=== PATIENT | female | born 1985 | race Caucasian/White ===

== ENCOUNTER 2023-09-19 13:04 | Outpatient (CLI) | payer OTHER, SELFPAY ==
--- NOTE | ~2023-09-19 | XR_ITS ---
Left wrist Technique: PA, oblique, lateral, and ulnar deviation views were obtained. Clinical History: Pain Findings: No acute fracture or dislocation is seen. Osseous alignment is anatomic. Joint spaces are p reserved. Soft tissues are unremarkable. Impression: Unremarkable left wrist radiographs. Reviewed, dictated and finalized at location . Impression: Unremarkable left wrist radiographs.
== END 2023-09-19 13:05 | disposition home or self-care (01) ==
LOC: ANHIMG 13:09
PROVIDERS: PCP Nurse Practitioner Family; Visit Provider Nurse Practitioner Family
DX: M25.532 Pain in left wrist (principal)
CPT/HCPCS: 73110

== ENCOUNTER 2023-09-25 08:51 | Outpatient (CLI) | payer OTHER, SELFPAY ==
[2023-09-25 09:08] LABS: Basophils Percent Auto 0.9 % (0.2-1.2); Eosinophils Absolute Auto 0.1 K/mm3 (0-0.3); Eosinophils Percent Auto 2.3 % (0-4.4); Hematocrit 41.9 % (37.0-47.0); Hemoglobin 14.4 g/dL (12.0-15.0); Immature Granulocyte Absolute 0.01 K/mm3 (0.00-0.031); Immature Granulocyte Percent A 0.2 % (0-0.5); Lymphocytes Absolute Auto 1.82 K/mm3 (0.9-3.2); Lymphocytes Percent Auto 42.4 % (18.3-44.2); Mean Corpuscular HGB Conc 34.4 g/dl (32-36); Mean Corpuscular Hemoglobin 31.8 pg (26-34); Mean Corpuscular Volume 92.5 fl (80-100); Monocytes Absolute Auto 0.3 K/mm3 (0.1-0.6); Monocytes Percent Auto 5.8 % (2.6-8.5); Neutrophils Absolute Auto 2.1 K/mm3 (1.3-6.7); Neutrophils Percent Auto 48.4 % (45.5-73.1); Platelet Count Result 300 k/mm3 (150-375); Red Blood Count 4.53 M/mm3 (4.2-5.4); Red Cell Distribution Width 12.2 % (11.5-14.5); White Blood Count 4.3 K/mm3 (4.5-10.0)
[2023-09-25 09:21] LABS: Alanine Aminotransferase 18 U/L (6-35); Albumin Level 4.6 g/dL (3.5-5.1); Alkaline Phosphatase 54 U/L (38-126); Anion Gap 9 mmol/L (4-12); Aspartate Amino Transferase 21 U/L (14-36); Bilirubin,Total 0.9 mg/dL (0.2-1.3); Blood Urea Nitrogen 15 mg/dL (7-17); Calcium 9.7 mg/dL (8.4-10.2); Carbon Dioxide 23 mmol/L (22-30); Chloride 107 mmol/L (98-107); Cholesterol 159 mg/dL (0-200); Estimated Glomerular Filt Rate > 60; Glucose 95 mg/dL (65-110); HDL Direct 58 mg/dL; Potassium 4.3 mmol/L (3.4-5.0); Sodium 139 mmol/L (137-145); Triglycerides 112 mg/dL (<150)
[2023-09-25 09:24] LABS: Hemoglobin A1C 4.5 % (<5.7)
[2023-09-25 09:34] LABS: LDL Cholesterol Direct 89 mg/dL
[2023-09-25 09:42] LABS: Iron 232 ug/dL (37-170)
[2023-09-25 09:51] LABS: Percent Iron Saturation 56 % (20-50)
[2023-09-25 10:53] LABS: Appearance Urine Clear (Clear); Bilirubin Urine Negative (Negative); Blood Urine Negative (Negative); Color Urine Yellow (Yellow); Glucose Urine UA Negative (Negative); Ketones Urine Negative (Negative); Leukocyte Esterase Ur Negative LEU/UL (Negative); Nitrate Urine Negative (Negative); Protein Urine Negative (Negative); Specific Grav Ur 1.012 (1.001-1.035); Urobilinogen Urine 0.2 mg/dL (<2.0)
[2023-09-25 11:04] LABS: Add Urine Microscopic? NO
== END 2023-09-25 08:52 | disposition home or self-care (01) ==
LOC: ANHLAB 08:52
PROVIDERS: PCP Nurse Practitioner Family; Visit Provider Nurse Practitioner Family
DX: Z00.00 Encounter for general adult medical examination without abnormal findings (principal); D64.9 Anemia, unspecified; Z68.30 Body mass index [BMI] 30.0-30.9, adult; Z13.1 Encounter for screening for diabetes mellitus; Z13.6 Encounter for screening for cardiovascular disorders; Z13.29 Encounter for screening for other suspected endocrine disorder
CPT/HCPCS: 36415; 80053; 80061; 81003; 82607; 82728; 83036; 83540; 83550; 84443; 85025

== ENCOUNTER 2023-10-02 15:36 | Outpatient (CLI) | payer OTHER, SELFPAY ==
--- NOTE | ~2023-10-02 | US_ITS ---
EXAMINATION: US soft tissue LE RT DATE: 10/02/2023 16:07 INDICATION: /Swelling, mass or lump at the medial right lower leg TECHNIQUE: Multiple grayscale and Doppler ultrasound images of the region of concern at the medial ri ght lower leg were obtained. COMPARISON: None FINDINGS: Indeterminate 5 x 4 x 2 mm hypoechoic nodule in the subcutaneous tissues at the region of concern. Th e nodule is positioned 3 mm deep to the skin surface and 2 mm superficial to the tibial cortex. IMPRESSION: 1. Nonspecific 5 x 4 x 2 mm hypoechoic subcutaneous nodule at the region of concern which is of indet erminate etiology or significance with differential including neoplasm either benign or statistically less likely malignant. Reviewed, dictated and finalized at location B. IMPRESSION: 1. Nonspecific 5 x 4 x 2 mm hypoechoic subcutaneous nodule at the region of con cern which is of indeterminate etiology or significance with differential inclu ding neoplasm either benign or statistically less likely malignant.
== END 2023-10-02 15:37 | disposition home or self-care (01) ==
LOC: ANHIMG 15:36
PROVIDERS: PCP Nurse Practitioner Family; Visit Provider Nurse Practitioner Family
DX: R22.41 Localized swelling, mass and lump, right lower limb (principal)
CPT/HCPCS: 76882

== ENCOUNTER 2023-10-11 13:36 | Outpatient (CLI) | payer OTHER, SELFPAY ==
--- NOTE | 2023-10-11 14:20 | NEURO_ITS ---
Impression: # Complains of numbness of left 4th and 5th fingers. Non-diabetic. # Left ulnar neuropathy across the elbow. # Normal needle/EMG without neurogenic changes or myotonia. # Clinical correlation recommended. Nerve Conduction Studies Anti Sensory Summary Table Stim Site NR Peak (ms) P-T Amp (?V) Site1 Site2 Delta-P (ms) Dist (cm) Grady (m/s) Left Median Anti Sensory (2-3nd Digit) Wrist 2.7 69.9 Wrist 2-3nd Digit 2.7 14.0 52 Wrist 2.6 62.3 Wrist 2-3nd Digit 2.7 14.0 52 Left Radial Anti Sensory (Base 1st Digit) Wrist 2.0 31.0 Wrist Base 1st Digit 2.0 0.0 Left Ulnar Anti Sensory (5th Digit) Wrist 2.2 58.1 Wrist 5th Digit 2.2 14.0 64 Motor Summary Table Stim Site NR Onset (ms) O-P Amp (mV) Site1 Site2 Delta-0 (ms) Dist (cm) Grady (m/s) Left Median Motor (Abd Poll Brev) Wrist 2.6 9.3 Elbow Wrist 4.7 30.0 64 Elbow 7.3 7.8 Left Ulnar Motor (Abd Dig Minimi) Wrist 2.1 7.7 A Elbow Wrist 5.5 28.0 51 A Elbow 7.6 4.5 B Elbow Wrist 3.5 20.0 57 B Elbow 5.6 6.6 F Wave Studies NR F-Lat (ms) L-R F-Lat (ms) Left Median (Mrkrs) (Abd Poll Brev) 25.31 Left Ulnar (Mrkrs) (Abd Dig Min) 25.94 EMG Side Muscle Nerve Root Ins Act Fibs Amp Dur Recrt Comment Left 1stDorInt Ulnar C8-T1 Nml Nml Nml Nml Nml Left Ext Indicis Radial (Post Int) C7-8 Nml Nml Nml Nml Nml Left Ext Digitorum Radial (Post Int) C7-8 Nml Nml Nml Nml Nml Left BrachioRad Radial C5-6 Nml Nml Nml Nml Nml Left PronatorTeres Median C6-7 Nml Nml Nml Nml Nml Left Abd Poll Brev Median C8-T1 Nml Nml Nml Nml Nml Left ABD Dig Min Ulnar C8-T1 Nml Nml Nml Nml Nml MTDD
== END 2023-10-11 13:37 | disposition home or self-care (01) ==
LOC: ANHNEURO 13:37
PROVIDERS: PCP Nurse Practitioner Family; Visit Provider Nurse Practitioner Family
DX: G56.22 Lesion of ulnar nerve, left upper limb (principal)
CPT/HCPCS: 95886; 95909

== ENCOUNTER 2024-05-21 13:09 | Outpatient (CLI) | payer OTHER, SELFPAY ==
[2024-05-21 13:57] LABS: Basophils Absolute Auto 0.1 K/mm3 (0.0-0.1); Basophils Percent Auto 0.8 % (0.2-1.2); Eosinophils Absolute Auto 0.1 K/mm3 (0-0.3); Eosinophils Percent Auto 1.4 % (0-4.4); Hematocrit 37.8 % (37.0-47.0); Hemoglobin 12.8 g/dL (12.0-15.0); Immature Granulocyte Absolute 0.02 K/mm3 (0.00-0.031); Immature Granulocyte Percent A 0.3 % (0-0.5); Lymphocytes Absolute Auto 2.62 K/mm3 (0.9-3.2); Lymphocytes Percent Auto 39.4 % (18.3-44.2); Mean Corpuscular HGB Conc 33.9 g/dl (32-36); Mean Corpuscular Hemoglobin 31.7 pg (26-34); Mean Corpuscular Volume 93.6 fl (80-100); Mean Platelet Volume 10.6 fl (7.4-10.4); Monocytes Absolute Auto 0.4 K/mm3 (0.1-0.6); Monocytes Percent Auto 5.7 % (2.6-8.5); Neutrophils Absolute Auto 3.5 K/mm3 (1.3-6.7); Neutrophils Percent Auto 52.4 % (45.5-73.1); Platelet Count Result 306 k/mm3 (150-375); Red Blood Count 4.04 M/mm3 (4.2-5.4); Red Cell Distribution Width 11.9 % (11.5-14.5); White Blood Count 6.7 K/mm3 (4.5-10.0)
--- NOTE | 2024-05-21 15:14 | ECG_ITS ---
Test Date: 2024-05-21 15:22:34 Measurements Intervals [place] Rate: 75 P: 65 MD: 118 QRS: -9 QRSD: 108 T: -1 QT: 457 QTc: 513 Interpretive Statements SINUS RHYTHM WITH SHORT MD INTERVAL WITH FREQUENT VENTRICULAR PREMATURE COMPLEXES No previous ECG available for comparison Electronically Signed On 05-21-2024 22:40:43 ENAMEL PULVERIZER by Kari Dumont M.D.
[2024-05-21 17:24] LABS: Anion Gap 5 mmol/L (4-12); Blood Urea Nitrogen 19 mg/dL (7-17); Calcium 9.2 mg/dL (8.4-10.2); Carbon Dioxide 25 mmol/L (22-30); Chloride 107 mmol/L (98-107); Estimated Glomerular Filt Rate > 60; Glucose 88 mg/dL (65-110); Potassium 4.1 mmol/L (3.4-5.0); Sodium 137 mmol/L (137-145)
[2024-05-21 17:31] LABS: Iron 131 ug/dL (37-170)
[2024-05-21 17:40] LABS: Percent Iron Saturation 31 % (20-50)
[2024-05-21 17:51] LABS: Free T4 Free Thyroxine 1.02 ng/dL (0.78-2.19)
[2024-05-21 17:53] LABS: Total Triiodothyronine (T3) 1.53 NG/ML (0.97-1.69)
== END 2024-05-21 13:10 | disposition home or self-care (01) ==
PROVIDERS: PCP Nurse Practitioner Family; Visit Provider Family Medicine
DX: I45.6 Pre-excitation syndrome (principal); I49.3 Ventricular premature depolarization; D64.9 Anemia, unspecified; R00.2 Palpitations
CPT/HCPCS: 36415; 80048; 82728; 83540; 83550; 83735; 84439; 84443; 84480; 85025; 93005

== ENCOUNTER 2024-06-14 11:24 | Emergency (ER) | payer OTHER, SELFPAY ==
--- NOTE | 2024-06-14 11:39 | ECG_ITS ---
Test Date: 2024-06-14 11:46:49 Measurements Intervals [place] Rate: 88 P: 59 [place]: 116 QRS: -5 QRSD: 95 T: 93 QT: 370 QTc: 448 Interpretive Statements SINUS RHYTHM WITH SHORT [place] INTERVAL POSSIBLE LEFT ATRIAL ENLARGEMENT [-0.1mV P WAVE IN V1/V2] LOW QRS VOLTAGE IN PRECORDIAL LEADS [QRS DEFLECTION < 1.0 mV IN CHEST LEADS] LEFT VENTRICULAR HYPERTROPHY AND ST-T CHANGE [VOLTAGE CRITERIA PLUS ST/T ABNORMALITY] ANTERIOR MYOCARDIAL INFARCTION , PROBABLY OLD [40+ ms Q WAVE AND/OR ST/T ABNORMALITY IN V3/V4] INFERIOR MYOCARDIAL INFARCTION , PROBABLY OLD [40+ ms Q WAVE AND/OR ST/T ABNORMALITY IN II/aVF] Compared to ECG 05/21/2024 15:22:34 Left ventricular hypertrophy now present Myocardial infarct finding now present Electronically Signed On 06-14-2024 12:05:44 LOSS PREVENTION/SAFETY DISTRICT MANAGER by Lorrie Umaña
[2024-06-14 11:40] VITALS: BP 177/89; PULSE 90; RESP 16; TEMP 36.4; O2SAT 100
--- OUTSIDE RECORDS SUMMARY | 2024-06-14 11:48 | XMS_ITS | CONTINUITY OF CARE DOCUMENT ---
Author Name arunalva clyde Address Unknown Organization [facility] Office Address [address] [place] [address] [address] [place] [address] Phone [phone] Care Team Providers Care Welder Apprentice Name Role Phone Diego BARILLAS, Ephraim Unavailable [phone] HAYLEY TORREZ MD Unavailable HAYLEY TORREZ MD Unavailable [phone] INSURANCE PROVIDERS Payer name Policy type / Coverage type [place] red libertarian ID [facility] Other [id number]
--- OUTSIDE RECORDS SUMMARY | 2024-06-14 11:48 | XMS_ITS | Clinical Summary ---
Author Organization [facility] Administrative Offices Address [address] [place] [id number] Care Team Providers Care Job Press Operator Name Role Phone Unavailable Primary Care Provider Unavailabl e Allergies No known active allergies Medications spironolactone (ALDACTONE) 25 mg tablet Take 1 Tablet by mouth daily. 04/02/2022 Active hydroCHLOROthiaz michele (HYDRODIURIL) 12.5 mg tablet Take 1 Tablet by mouth daily. 06/01/2022 Active segesterone ac-ethin estradioL ([place]overa) 0.15-0.013 mg/24 hour Ring Insert ring for 3 weeks- remove for 1 week- the reinsert. 1 Each 06/17/2022 Active Active Problems No known active problems Family History Medical History Relation Name Comments Breast Cancer Neg Hx Ovarian Cancer Neg Hx Relation Name Status Comments Father Alive Mother Alive Social History Tobacco Use Types Packs/Day Years Used Date Smoking Tobacco: Never Smokeless Tobacco: Never Tobacco Cessation:Counseling Given: Not Answered Alcohol Use Standard Drinks/Week Comments Yes 0 (1 standard drink = 0.6 oz pur e alcohol) only special occasions Comments Unknown Sex and Gender Information Value Date Recorded Sex Assigned at Not on file Legal Sex Female 7:32 PM DIRECTOR PAID MEDIA Gender Identity Not on file Sexual Orientation Not on file Last Filed Vital Signs Vital Sign Reading Time Taken Comments Blood Pressure 140/104 06/17/2022 11:11 AM DIRECTOR PAID MEDIA Pulse - - Temperature - - Respiratory Rate - - Oxygen Saturation - - Inhaled Oxygen Concentration - - Weight 88.5 kg (195 lb) 06/17/2022 11:11 AM DIRECTOR PAID MEDIA Height 165.7 cm (5' 5.25 ) 06/17/2022 11:[address] Body Mass Index 32.2 06/17/2022 11:11 AM DIRECTOR PAID MEDIA Plan of Treatment Health Maintenance Due Date Last Done Comments HEPATITIS B VACCINES (1 of 3 - 19+ 3-dose series) 01/24/2004 CERVICAL CANCER SCREENING 2015 INFLUENZA VACCINE (#1) 2023 2, 02/25/2021, 03/04/2020, Additional history exists COVID-19 Vaccine (2 - 2023- season) 2024 07/24/2020 DTAP/TDAP/TD VACCINES (2 - Td or Tdap) 10/06/2030 10/06/2020 HPV VACCINES Aged Out No longer eligi ble based on patient's age to complete this topic Insurance [facility] [id number]
--- OUTSIDE RECORDS SUMMARY | 2024-06-14 11:48 | XMS_ITS | Referral Summary ---
Author Organization [address] Address [address] [place] [id number] Care Team Providers Care Log Handler Name Role Phone Candelaria Colon MD Primary Care Provi balbir Allergies No known active allergies Medications spironolactone (ALDACTONE) 25 mg tabletIndication s:Acne vulgaris Take 1 tablet (25 mg total) by mouth daily 90 tablet 3 3 Active famotidine (PEPCID) 20 mg tablet Take 1 tablet (20 mg total) by mouth 2 (two) times a day as needed for heartburn 180 tablet 1 3 Active segesterone ac-ethin estradioL 0.15-0.013 mg/24 hour ringIndications: Menorrhagia with irregular cycle Insert 1 Ring (deactivated) into the vagina every 30 (thirty) days 1 each 2 4 Active azelastine (ASTELIN) 137 mcg (0.1 %) nasal sprayIndications :Seasonal allergic rhinitis, unspecified trigger Administer 1 spray into each nostril 2 (two) times a day 30 mL 4 Active Active Problems Problem Noted Date Diagnosed Date Seasonal allergic rhinitis 12/08/2022 Assessment & Plan (12/08/2022 9:07 AM CDT): Continue daily oral antihistamine. Prescription sent for Flonase. Will add Astelin to her regimen. Follow-up as needed. Hypertension, essential 11/18/2021 Assessment & Plan (02/16/2023 1:49 PM CDT): Chronic, stable Continue spironolactone Continue healthy changes Assessment & Plan (12/08/2022 9:08 AM CDT): Chronic. Previously on hydrochlorothiazide. Patient was able to lose weight and no longer requires medication. Continue to manage with healthy lifestyle measures. Follow low-salt diet. Get at least 150 minutes of exercise per week. Continue to work on weight loss. Will continue to monitor blood pressure. Labs ordered today. Assessment & Plan (04/25/2022 3:53 PM CREDIT INTERN): Recheck was WNL I have asked her to check her blood pressure daily- reviewed how to do it Continue HCTZ 12.5 mg daily Continue aldactone 25 mg daily Start working on the DASH diet- lower salt Update me in 1 week Call for questions or concerns Acne vulgaris 10/06/2020 Assessment & Plan (12/08/2022 9:08 AM CDT): Chronic and controlled. Continue spironolactone as prescribed. Continue daily gentle face wash regimen. Follow-up as needed. Assessment & Plan (10/06/2020 3:37 PM CDT): Will restart spironlactone Continue care for acne- gentle face wash like cerave Sun screen daily BMP recheck in 4-6 weeks Call for questions Well adult exam 02/13/2020 Assessment & Plan (12/08/2022 9:06 AM CDT): Health Maintenance: -PCV20: N/A -Tdap vaccine: 2020 -Influenza vaccine: 2021 -Shingles vaccine: N/A -Colonoscopy: N/A -Last WWE: 07/14/21 -Last Mammogram: N/A -Last DEXA: N/A -Last eye exam: N/A -Last MHA: N/A Patient is up-to-date on health maintenance. Annual labs ordered today. Continue with healthy diet and exercise changes. See us annually for routine physicals. Assessment & Plan (02/13/2020 11:27 AM CDT): Work on healthy low carb diet Healthy activity for 30 minutes daily Wear sun screen, seat belts No texting/drinking and driving Health Maintenance: Last PAP: 04/2019 Last mammogram:@40 Last colonoscopy/cologuard:@45 Last Tdap: encouraged Last pneumonia/Prevnar: @65 Last Shingrix:@50 Last Flu: 02/2020 GERD (gastroesophageal reflux disease) 0 Assessment & Plan (08/13/2019 10:07 AM CDT): Will start pepcid 20 mg twice day Actions and side effects of medications are discussed Watch for worsening symptoms- ie diarrhea, emesis, nausea, blood per rectum, hematemesis, fever, arthralgias, rash, unexplained weight loss etc... If those happen, please contact the office Healthy changes to improve GERD: Avoid spicy, fried, greasy food Keep hydrated with clear liquids Elevate head of bed 2-3 inches Avoid or cut down on caffeines, chocolates and ETOH No late meals or heavy meals after 7pm Regular daily exercise Weight loss if indicated will help improve symptoms Discussed increased risk of cdiff, dementia, pneumonia, bone demineralization leading to increase in fractures, CKD with terminal computer operator use of PPI Menorrhagia with irregular cycle 04/03/2019 Assessment & Plan (12/08/2022 9:06 AM CDT): Controlled. Managed by gynecology. Continue vaginal control ring. Up-to-date on Pap smear. Assessment & Plan (04/03/2019 9:24 AM CREDIT INTERN): Will check labs Will check pelvic ultrasound Does not do well will OCP's Will refer to SHELLFISH BED WORKER Update me after the visit Call for questions or concerns Class 1 obesity due to exces s calories with serious comorbidity and body mass index (BMI) of 30.0 to 30.9 in adult 04/03/2019 Assessment & Plan (02/16/2023 1:51 PM CDT): Chronic, with gradual improvement We reviewed healthy options that may help her weight weight loss and hunger BMI Follow-up includes: nutrition counseling. Assessment & Plan (12/08/2022 9:06 AM CDT): Reviewed BMI Congratulated patient on her weight loss! Continue with healthy lifestyle changes Assessment & Plan (04/25/2022 3:53 PM CREDIT INTERN): Start DASH/low salt BMI Follow-up includes: nutrition counseling. Assessment & Plan (11/18/2021 8:59 AM CDT): Continue to DASH BMI Follow-up includes: nutrition counseling. Assessment & Plan (10/06/2020 3:37 PM CDT): BMI Follow-up includes: nutrition counseling. Assessment & Plan (02/13/2020 12:53 PM CDT): BMI Follow-up includes: nutrition counseling. Assessment & Plan (01/09/2020 1:59 PM CDT): BMI Follow-up includes: nutrition counseling. Assessment & Plan (04/03/2019 9:27 AM CREDIT INTERN): BMI Follow-up includes: nutrition counseling. BMR calculated at:1617 calories/day To lose weight, daily calorie goal to lose a pound a week would be 1317 Start tracking using an clifton like [employer], loseit There are many different diet options- I recommend moderation, low carb Try aim for whole foods-fruits, veggies, lean meats/protein sources Exercise is probably only 5% of the equation, but has many other benefits Aim for 30 minutes most day of the week for cardiac health Consider support groups like Weight Watchers or TOPS Follow up in 1 month for blood pressure/weight recheck Call for questions or concerns Resolved Problems Problem Noted Date Diagnosed Date Resolved Date Acute URI 08/13/2019 02/13/2020 Assessment & Plan (08/13/2019 10:10 AM CDT): Discussed viral nature of illness, treat symptomatically Tylenol/ibuprofen as needed Increase fluids, rest and handwashing Warm saltwater gargles Hot water/hot tea with honey Saline rinses to nose at least twice daily No sharing cups or utensils Cool mist humidifier May use vicks vaporub on chest and feet as needed to help with cough Please call if symptoms change or worsen, to the ER for anything emergent Immunizations Name Administration Dates Next Due Flucelvax Influenza Quad 03/06/2018,03/13/2017 Influenza, Quadrivalent, Bisi l Culture-based MDCK, Preservative Free, Antibiotic Free, Intramuscular 03/09/2022,02/25/2021,03/06/2018,03/13 Influenza, Quadrivalent, Rec ombinant, Egg Free, Preservative Free, Intramuscular 03/04/2020 Influenza, Quadrivalent, Spl it, Preservative Free, Intramuscular 03/19/2019 Influenza, Unspecified 02/16/2023(Deferr ed: Patient Refused),03/21/2021,02/13/2020(Deferre d: Patient Refused) [employer] (J[employer]J) SARS-CoV-2 Vaccination 07/24/2020 Tdap 10/06/2020 Social History Tobacco Use Types Packs/Day Years Used Date Smoking Tobacco: Never Cigarettes Smokeless Tobacco: Never Tobacco Cessation:Counseling Given: Not Answered Alcohol Use Standard Drinks/Week Comments Not Currently 0 (1 standard drink = 0.6 oz pur e alcohol) 1 beer every two weeks AUDIT-C Answer Date Recorded Q1: How often do you have a drink containing alc ohol? Monthly or less 02/16/2023 Q2: How many drinks containi ng alcohol do you have on a typical day when you are drinking? 1 or 2 02/16/2023 Q3: How often do you have si x or more drinks on one occasion? Never 02/16/2023 PHQ-2 Answer Date Recorded PHQ-2 Total Score (If total score is 3 or more points, staff should administer the PHQ-9) 0 02/16/2023 Personal Safety Answer Date Recorded Getting School Help Needed Not on file 05/12 Comments No Sex and Gender Information Value Date Recorded Sex Assigned at Not on file Legal Sex Female 3:01 AM CREDIT INTERN Gender Identity Female 06/05/2019 2:40 PM CREDIT INTERN Sexual Orientation Lesbian 06/05/2019 2: 40 PM CREDIT INTERN Last Filed Vital Signs Vital Sign Reading Time Taken Comments Blood Pressure 110/74 02/16/2023 1:02 PM CDT Pulse 55 02/16/2023 1:02 PM CDT Temperature 36.4 ??C (97.6 ??F) 02/16/2023 1:02 PM CD T Respiratory Rate 12 02/16/2023 1:02 PM CDT Oxygen Saturation 99% 02/16/2023 1:02 PM CDT Inhaled Oxygen Concentration - - Weight 79.2 kg (174 lb 9.6 oz) 02/16/2023 1:02 P M CDT Height 162.6 cm (5' 4 ) 02/16/2023 1:02 PM CDT Body Mass Index 29.97 02/16/2023 1:02 PM CDT Plan of Treatment Not on file Procedures Procedure Name Priority Date/Time Associated Diagnosis Comments PAP AND HIGH RISK HPV, REFLEX TO GENOTYPING Routine 07/14/2021 11:10 AM CREDIT INTERN Well woman exam Screening for cervical cancer from Last 3 Months or Most Recently Relevant to Health Maintenance Results * Pap and High Risk HPV, reflex to Genotyping (07/14/2021 11:10 AM CREDIT INTERN) Thin prep (Pap test) 07/14/2021 11:10 AM CREDIT INTERN 07/16/2021 11:10 AM CREDIT INTERN Narrative [facility] - 07/22/2021 11:14 AM CREDIT INTERN [facility] Department of Pathology [address] [place] [address] Final Report with Addendum Note to Patients: This report may contain a detailed description of human tissue sent by a health care provider to the laboratory for pathologic evaluation. The content of this report is essential for diagnosis and may provide important critical findings. This information may be unfamiliar to patients to review without a medical professional present. It is advised that the patient review this report in the presence of a health care provider who can answer questions and explain the details. Patient Name: ??ELVIRA VASQUEZ Address: ??[address], ?? [place], [place] ??[address] Gender: ??F : ??1985 (Age: 36) Service: ??Laboratory Location: ?? [facility] #: ??[id number] Patient Type: ??[facility] SPECIMEN Taken: ??07/14/2021 Received: ??07/16/2021 Accessioned:: ??07/19/2021 Reported: ??07/22/2021 Physician(s): Sue Pratt M.D. [facility] Diagnosis: Source of Specimen: ? SCREENING THIN PREP IMAGED PAP w/ HPV Specimen Adequacy: ?- Satisfactory for evaluation; endocervical/transformation zone component present General Category: ?- Negative for intraepithelial lesion or malignancy ?? SOFIA Mauro(ASCP) Report Electronically Reviewed and Signed Out By ??SOFIA Mauro(ASCP) ??07/22/2021 11:14:53 ??Addenda: HPV Test Interpretation NEGATIVE for types 16, 18, 31, 33, 35, 39, 45, 51, 52, 56, 58, 59, 66 and 68. Test performed utilizing Gen-Probe Aptima assay. ?? SOFIA Mauro(ASCP) ??Report Electronically Reviewed and Signed Out By ??SOFIA Mauro(ASCP) ??07/19/2021 13:38:57 ? Specimen(s) Received: A: SCREENING THIN PREP IMAGED PAP w/ HPV Clinical History: Contraceptive History: Contraceptive ring The Pap test is a screening test used to aid in the detection of cervical cancer and its precursors. ??It should not be the sole means by which malignant and premalignant lesions are diagnosed. ??Both false negative and false positive results may occur. ?? It also has poor sensitivity for the detection of endometrial lesions and should not be used to evaluate suspected endometrial abnormalities. ??For these reasons it is most important to obtain Pap tests at regular intervals. The performance characteristics of some immunohistochemical stains, fluorescence in-situ hybridization tests and immunophenotyping by flow cytometry cited in this report (if any) were determined by the Surgical Pathology Department at [facility] as part of an ongoing supplier quality program and in compliance with federally mandated regulations drawn from the Clinical Laboratory Improvement Act of 1988 (CLIA '88). ??Some of these tests rely on the use of analyte specific reagents and are subject to specific labeling requirements by the US Food and Drug Administration. ??Such diagnostic tests may only be performed in a facility that is certified by the Department of Health and Human Services as a high complexity laboratory under CLIA '88. The FDA has determined that such clearance or approval is not necessary. ??This test is used for clinical purposes. ??It should not be regarded as investigational or for research. ??Nevertheless, federal rules concerning the medical use of analyte specific reagents require that the following disclaimer be attached to the report: This test was developed and its performance characteristics determined by the Surgical Pathology Department [facility]. ??It has not been cleared or approved by the U. S. Food and Drug Administration. Sue Pratt MD LAB CYTOLOGY ORDERABLES Final Re sult Performing Organization Address City/State/[facility] Co de Phone Number [facility] from Last 3 Months or Most Recently Relevant to Health Maintenance Insurance [facility] CHOICE PL[employer] OPEN ACCESS Care Teams Log Handler Relationship Specialty Start Date End Date Candelaria Colon MD [address] [place] [address] PCP - General Family Medicine 01/31/19
--- OUTSIDE RECORDS SUMMARY | 2024-06-14 11:49 | XMS_ITS | Clinical Summary ---
Author Organization [address] Address [address] [place] [phone] Care Team Providers Care Soft Work Wrapper Examiner Name Role Phone Candelaria Colon MD Primary [...] today. 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 Managed by gynecology. Continue vaginal control ring. Up-to-date on Pap smear. Assessment & Plan (04/03/2019 9:24 AM BINDERY LEADPERSON): Will check labs Will check pelvic ultrasound Does not do well will OCP's Will refer to REAL ESTATE VALUER Update me after the visit Call for [...] changes Assessment & Plan (04/25/2022 3:53 PM BINDERY LEADPERSON): Start DASH/low salt BMI Follow-up includes: nutrition [...] counseling. Assessment & Plan (04/03/2019 9:27 AM BINDERY LEADPERSON): BMI Follow-up includes: nutrition counseling. BMR calculated at:1617 calories/day To lose weight, daily calorie goal to lose a pound a week would be 1317 Start tracking using an clifton like Clerk, loseit There are many different diet options- [...] 02/16/2023(Deferr ed: Patient Refused),03/21/2021,02/13/2020(Deferre d: Patient Refused) Analy (J&J) SARS-CoV-2 Vaccination 07/24/2020 Tdap 10/06/2020 Surgical History Surgery Date Site/Laterality Comments TONSILLECTOMY Medical History Medical History Date Comments No known health problems GERD (gastroesophageal reflux disease) 2018 Family History Medical History Relation Name Comments No Known Problems Brother No Known Problems Father Heart attack Maternal Grandfather Sidney Ramirez Heart attack Maternal Grandmother Danna Santizomissy Macular degeneration Maternal Grandmother Danna Ramirez Hypertension Mother Anne Krishnamurthy Alzheimer's disease Paternal Grandfather Peter Vasquez Alzheimer's disease Paternal Grandmother Ailyn Carmona on No Known Problems Sister Relation Name Status Comments Brother Alive Father Alive Maternal Grandfather Sidney Ramirez Maternal Grandmother Danna Ramirez Mother Anne Krishnamurthy Alive Paternal Grandfather Peter Vasquez Paternal Grandmother Ailyn Vasquez Sister Alive Social History Tobacco Use Types Packs/Day [...] on file Legal Sex Female 3:01 AM BINDERY LEADPERSON Gender Identity Female 06/05/2019 2:40 PM BINDERY LEADPERSON Sexual Orientation Lesbian 06/05/2019 2: 40 PM BINDERY LEADPERSON Obstetrics History Para Term AB IAB SAB Ectopic Multiple Livin g Live Births 0 0 0 0 0 0 0 0 0 0 0 Last Filed Vital Signs Vital Sign Reading [...] 02/16/2023 1:02 PM CDT Plan of Treatment Health Maintenance Due Date Last Done Comments Hepatitis C Screening 1985 Hepatitis B Screening 2003 Regular Well Visit/Exam 18-64 12/09/2023 12/08/2022, 07/14/2021, 02/13/2020 Covid-19 Vaccine ( season) 2024 03/09/2022, 05/20/2021, 07/24/2020 Influenza Vaccine (#1) 2024 , 03/21/2021, 02/25/2021, Additional history exists Depression Screening 02/17/2024 02/16/2023, 04/25/2022, 11/18/2021, Additional history exists Cervical Cancer Screening 07/14/20262021, 05/17/2019, 05/17/2019, Additional history exists DTaP/Tdap/Td Vaccine (2 - Td or Tdap) 10/06/2030 10/06/2020 HPV Vaccines Aged Out No longer eligi ble based on patient's age to complete this topic Pneumococcal vaccine <65 Aged Out No longer eligible based on patient's age to complete this topic Varicella Vaccines Discontinued Procedures Procedure Name Priority Date/Time Associated Diagnosis Comments PAP AND HIGH RISK HPV, REFLEX TO GENOTYPING Routine 07/14/2021 11:10 AM BINDERY LEADPERSON Well woman exam Screening for cervical cancer from Last 3 Months or Most Recently Relevant to Health Maintenance Results * Pap and High Risk HPV, reflex to Genotyping (07/14/2021 11:10 AM BINDERY LEADPERSON) Thin prep (Pap test) 07/14/2021 11:10 AM BINDERY LEADPERSON 07/16/2021 11:10 AM BINDERY LEADPERSON Narrative PATHOLOGY [facility] - 07/22/2021 11:14 AM BINDERY LEADPERSON [facility] Department of Pathology [address] [place] [address] Final Report with Addendum Note to Patients: [...] details. Patient Name: ??ELVIRA VASQUEZ Address: ??[address] [facility], ?? [place], [place] ??[address] Gender: ??F : ??1985 (Age: 36) Service: ??Laboratory Location: ?? Hospital #: ??[id number] Patient Type: ??[facility] SPECIMEN Taken: ??07/14/2021 Received: ??07/16/2021 Accessioned:: ??07/19/2021 Reported: ??07/22/2021 Physician(s): Sue Pratt M.D. [facility] Diagnosis: Source of Specimen: ? SCREENING THIN [...] 59, 66 and 68. Test performed utilizing Gen-[employer] Aptima assay. ?? SOFIA Mauro(ASCP) ??Report Electronically [...] determined by the Surgical Pathology Department at [facility] as part of an ongoing quality assurance director program and in compliance with federally mandated [...] determined by the Surgical Pathology Department [facility]. ??It has not been cleared or approved by the U. S. Food and Drug Administration. Sue Pratt MD LAB CYTOLOGY ORDERABLES Final Re sult PATHOLOGY [facility] from Last 3 Months or Most Recently Relevant to Health Maintenance Insurance [facility] CHOICE PLUS [facility] OPEN ACCESS Care Teams Soft Work Wrapper Examiner Relationship Specialty Start Date End Date Candelaria Colon MD [address] [place] [address] PCP - General Family Medicine 01/31/19
--- NOTE | 2024-06-14 12:35 | PC.NURSE ---
Pt states, I feel fine, I'm gonna go back to work.
--- OUTSIDE RECORDS SUMMARY | 2024-06-14 12:48 | XMS_ITS | Clinical Summary ---
Author Organization [facility] Address [address] [place] [phone] Care Team Providers Care Dry Heat Room Attendant Name Role Phone Unavailable Primary Care Provider [...] on file Legal Sex Female 7:32 PM OPTOMETRIC AIDE Gender Identity Not on file Sexual Orientation Not on file Last Filed Vital Signs Vital Sign Reading Time Taken Comments Blood Pressure 140/104 06/17/2022 11:11 AM OPTOMETRIC AIDE Pulse - - Temperature - - Respiratory Rate - - Oxygen Saturation - - Inhaled Oxygen Concentration - - Weight 88.5 kg (195 lb) 06/17/2022 11:11 AM OPTOMETRIC AIDE Height 165.7 cm (5' 5.25 ) 06/17/2022 11:[address] Body Mass Index 32.2 06/17/2022 11:11 AM OPTOMETRIC AIDE Plan of Treatment Health Maintenance Due Date [...] patient's age to complete this topic Insurance [facility] [id number]
--- OUTSIDE RECORDS SUMMARY | 2024-06-14 12:48 | XMS_ITS | Referral Summary ---
Author Organization [address] Address [address] [place] [phone] Care Team Providers Care Spinning Lathe Operator Hydraulic Name Role Phone Candelaria Colon MD Primary [...] today. Assessment & Plan (04/25/2022 3:53 PM MOLD YARD CRANE OPERATOR): Recheck was WNL I have asked her [...] leading to increase in fractures, CKD with intermediate frame tender use of PPI Menorrhagia with irregular cycle 04/03/2019 Assessment & Plan (12/08/2022 9:06 AM CDT): Controlled. Managed by gynecology. Continue vaginal control ring. Up-to-date on Pap smear. Assessment & Plan (04/03/2019 9:24 AM MOLD YARD CRANE OPERATOR): Will check labs Will check pelvic ultrasound Does not do well will OCP's Will refer to BINDERY MACHINE OPERATOR Update me after the visit Call for [...] changes Assessment & Plan (04/25/2022 3:53 PM MOLD YARD CRANE OPERATOR): Start DASH/low salt BMI Follow-up includes: nutrition [...] counseling. Assessment & Plan (04/03/2019 9:27 AM MOLD YARD CRANE OPERATOR): BMI Follow-up includes: nutrition counseling. BMR calculated at:1617 calories/day To lose weight, daily calorie goal to lose a pound a week would be 1317 Start tracking using an clifton like [employer], loseit There are many different diet options- [...] 02/16/2023(Deferr ed: Patient Refused),03/21/2021,02/13/2020(Deferre d: Patient Refused) [employer] (J&J) SARS-CoV-2 Vaccination 07/24/2020 Tdap 10/06/2020 Social [...] on file Legal Sex Female 3:01 AM MOLD YARD CRANE OPERATOR Gender Identity Female 06/05/2019 2:40 PM MOLD YARD CRANE OPERATOR Sexual Orientation Lesbian 06/05/2019 2: 40 PM MOLD YARD CRANE OPERATOR Last Filed Vital Signs Vital Sign Reading [...] REFLEX TO GENOTYPING Routine 07/14/2021 11:10 AM MOLD YARD CRANE OPERATOR Well woman exam Screening for cervical cancer from Last 3 Months or Most Recently Relevant to Health Maintenance Results * Pap and High Risk HPV, reflex to Genotyping (07/14/2021 11:10 AM MOLD YARD CRANE OPERATOR) Thin prep (Pap test) 07/14/2021 11:10 AM MOLD YARD CRANE OPERATOR 07/16/2021 11:10 AM MOLD YARD CRANE OPERATOR Narrative PATHOLOGY [facility] - 07/22/2021 11:14 AM MOLD YARD CRANE OPERATOR [facility] Department of Pathology [address] [place] [address] Final Report with Addendum Note to Patients: [...] details. Patient Name: ??ELVIRA VASQUEZ Address: ??[address] [facility], ?? [place], [place] ??[address] Gender: ??F : ??1985 (Age: 36) Service: ??Laboratory Location: ?? [facility] #: ??[id number] Patient Type: ??[facility] SPECIMEN Taken: ??07/14/2021 Received: ??07/16/2021 Accessioned:: ??07/19/2021 Reported: ??07/22/2021 Physician(s): Sue Pratt M.D. [facility] Diagnosis: Source of Specimen: ? SCREENING THIN [...] determined by the Surgical Pathology Department at [facility] as part of an ongoing air quality manager program and in compliance with federally mandated [...] characteristics determined by the Surgical Pathology Department [facility]. ??It has not been cleared or approved by the U. S. Food and Drug Administration. Sue Pratt MD LAB CYTOLOGY ORDERABLES Final Re sult Performing Organization Address City/State/[facility] Co de Phone Number PATHOLOGY [facility] from Last 3 Months or Most Recently Relevant to Health Maintenance Insurance [facility] CHOICE PLUS [employer] OPEN ACCESS Care Teams Spinning Lathe Operator Hydraulic Relationship Specialty Start Date End Date Candelaria Colon MD [address] [place] [address] PCP - General Family Medicine 01/31/19
--- OUTSIDE RECORDS SUMMARY | 2024-06-14 12:48 | XMS_ITS | CONTINUITY OF CARE DOCUMENT ---
Author Name arunalva clyde Address Unknown Organization [facility] Address [address] [place] [address] [address] [place] [address] Phone [phone] Care Team Providers Care Data Warehouse Analyst Name Role Phone Diego BARILLAS, Ephraim Unavailable [phone] HAYLEY TORREZ MD Unavailable [phone] HAYLEY TORREZ MD Unavailable [phone] INSURANCE PROVIDERS Payer name Policy type / Coverage type [place] red constitution party ID [facility] Other [id number]
--- OUTSIDE RECORDS SUMMARY | 2024-06-14 12:48 | XMS_ITS | Clinical Summary ---
Author Organization [address] Address [address] [place] [phone] Care Team Providers Care Structural Analyst Name Role Phone Candelaria Colon MD Primary [...] today. Assessment & Plan (04/25/2022 3:53 PM COMMERCIAL FIELD INSPECTOR): Recheck was WNL I have asked her [...] leading to increase in fractures, CKD with watermaster use of PPI Menorrhagia with irregular cycle 04/03/2019 Assessment & Plan (12/08/2022 9:06 AM CDT): Controlled. Managed by gynecology. Continue vaginal control ring. Up-to-date on Pap smear. Assessment & Plan (04/03/2019 9:24 AM COMMERCIAL FIELD INSPECTOR): Will check labs Will check pelvic ultrasound Does not do well will OCP's Will refer to CASTING CLEANER Update me after the visit Call for [...] changes Assessment & Plan (04/25/2022 3:53 PM COMMERCIAL FIELD INSPECTOR): Start DASH/low salt BMI Follow-up includes: nutrition [...] counseling. Assessment & Plan (04/03/2019 9:27 AM COMMERCIAL FIELD INSPECTOR): BMI Follow-up includes: nutrition counseling. BMR calculated at:1617 calories/day To lose weight, daily calorie goal to lose a pound a week would be 1317 Start tracking using an clifton like Newsy, loseit There are many different diet options- [...] on file Legal Sex Female 3:01 AM COMMERCIAL FIELD INSPECTOR Gender Identity Female 06/05/2019 2:40 PM COMMERCIAL FIELD INSPECTOR Sexual Orientation Lesbian 06/05/2019 2: 40 PM COMMERCIAL FIELD INSPECTOR Obstetrics History Para Term AB IAB SAB [...] REFLEX TO GENOTYPING Routine 07/14/2021 11:10 AM COMMERCIAL FIELD INSPECTOR Well woman exam Screening for cervical cancer from Last 3 Months or Most Recently Relevant to Health Maintenance Results * Pap and High Risk HPV, reflex to Genotyping (07/14/2021 11:10 AM COMMERCIAL FIELD INSPECTOR) Thin prep (Pap test) 07/14/2021 11:10 AM COMMERCIAL FIELD INSPECTOR 07/16/2021 11:10 AM COMMERCIAL FIELD INSPECTOR Narrative PATHOLOGY [facility] - 07/22/2021 11:14 AM COMMERCIAL FIELD INSPECTOR [facility] Department of Pathology [address] [place] [address] Final Report with Addendum Note to Patients: [...] details. Patient Name: ??ELVIRA VASQUEZ Address: ??[address] [facility], ?? [place], [place] ??[address] Gender: ??F : ??1985 (Age: 36) Service: ??Laboratory Location: ?? Hospital #: ??[id number] Patient Type: ??[facility] SPECIMEN Taken: ??07/14/2021 Received: ??07/16/2021 Accessioned:: ??07/19/2021 Reported: ??07/22/2021 Physician(s): Sue Pratt M.D. [facility] Diagnosis: Source of Specimen: ? SCREENING THIN [...] 59, 66 and 68. Test performed utilizing Gen-[employer] Aptima assay. ?? SOFIA Mauro(ASCP) ??Report Electronically [...] determined by the Surgical Pathology Department at [facility] as part of an ongoing ict quality assurance engineer program and in compliance with federally mandated [...] characteristics determined by the Surgical Pathology Department [facility]. ??It has not been cleared or approved by the U. S. Food and Drug Administration. Sue Pratt MD LAB CYTOLOGY ORDERABLES Final Re sult PATHOLOGY [facility] from Last 3 Months or Most Recently Relevant to Health Maintenance Insurance [facility] CHOICE PLUS [facility] HMO/PPO Address: [address] [address] [place] [address] [facility] OPEN ACCESS Care Teams Structural Analyst Relationship Specialty Start Date End Date Candelaria Colon MD [address] [place] [address] PCP - General Family Medicine 01/31/19
== END 2024-06-14 12:46 | disposition left against medical advice (07) ==
LOC: ANHED 12:46
PROVIDERS: PCP Nurse Practitioner Family
DX: R00.2 Palpitations (principal)
CPT/HCPCS: 93005; 99199

== ENCOUNTER 2024-06-14 13:01 | Emergency (ER) | payer OTHER, SELFPAY ==
[2024-06-14] VITALS (7 sets, daily range): BP systolic 136; BP diastolic 80; PULSE 75–89; RESP 16–20; O2SAT 98–100
--- OUTSIDE RECORDS SUMMARY | 2024-06-14 13:11 | XMS_ITS | Clinical Summary ---
Author Organization [facility] Administrative Offices Address [address] [place] [phone] Care Team Providers Care Oracle R12 Developer Name Role Phone Unavailable Primary Care Provider [...] on file Legal Sex Female 7:32 PM PAPER PATTERN INSPECTOR Gender Identity Not on file Sexual Orientation Not on file Last Filed Vital Signs Vital Sign Reading Time Taken Comments Blood Pressure 140/104 06/17/2022 11:11 AM PAPER PATTERN INSPECTOR Pulse - - Temperature - - Respiratory Rate - - Oxygen Saturation - - Inhaled Oxygen Concentration - - Weight 88.5 kg (195 lb) 06/17/2022 11:11 AM PAPER PATTERN INSPECTOR Height 165.7 cm (5' 5.25 ) 06/17/2022 11:[address] Body Mass Index 32.2 06/17/2022 11:11 AM PAPER PATTERN INSPECTOR Plan of Treatment Health Maintenance Due Date [...] patient's age to complete this topic Insurance [facility] [id number]
--- OUTSIDE RECORDS SUMMARY | 2024-06-14 13:11 | XMS_ITS | Referral Summary ---
Author Organization [address] Address [address] [place] [phone] Care Team Providers Care Hospital Scientist Name Role Phone Candelaria Colon MD Primary [...] today. Assessment & Plan (04/25/2022 3:53 PM PLANT ENGINEER): Recheck was WNL I have asked her [...] leading to increase in fractures, CKD with fresh foods cake decorator use of PPI Menorrhagia with irregular cycle 04/03/2019 Assessment & Plan (12/08/2022 9:06 AM CDT): Controlled. Managed by gynecology. Continue vaginal control ring. Up-to-date on Pap smear. Assessment & Plan (04/03/2019 9:24 AM PLANT ENGINEER): Will check labs Will check pelvic ultrasound Does not do well will OCP's Will refer to MOTEL FRONT DESK ATTENDANT Update me after the visit Call for [...] changes Assessment & Plan (04/25/2022 3:53 PM PLANT ENGINEER): Start DASH/low salt BMI Follow-up includes: nutrition [...] counseling. Assessment & Plan (04/03/2019 9:27 AM PLANT ENGINEER): BMI Follow-up includes: nutrition counseling. BMR calculated at:1617 calories/day To lose weight, daily calorie goal to lose a pound a week would be 1317 Start tracking using an clifton like [employer]fluence, loseit There are many different diet options- [...] 02/16/2023(Deferr ed: Patient Refused),03/21/2021,02/13/2020(Deferre d: Patient Refused) [employer] (J&J) SARS-CoV-2 Vaccination 07/24/2020 Tdap 10/06/2020 Social [...] on file Legal Sex Female 3:01 AM PLANT ENGINEER Gender Identity Female 06/05/2019 2:40 PM PLANT ENGINEER Sexual Orientation Lesbian 06/05/2019 2: 40 PM PLANT ENGINEER Last Filed Vital Signs Vital Sign Reading [...] REFLEX TO GENOTYPING Routine 07/14/2021 11:10 AM PLANT ENGINEER Well woman exam Screening for cervical cancer from Last 3 Months or Most Recently Relevant to Health Maintenance Results * Pap and High Risk HPV, reflex to Genotyping (07/14/2021 11:10 AM PLANT ENGINEER) Thin prep (Pap test) 07/14/2021 11:10 AM PLANT ENGINEER 07/16/2021 11:10 AM PLANT ENGINEER Narrative PATHOLOGY [facility] - 07/22/2021 11:14 AM PLANT ENGINEER [facility] Department of Pathology [address] [place] [address] Final Report with Addendum Note to Patients: [...] details. Patient Name: ??ELVIRA VASQUEZ Address: ??[address] [facility], ?? [place], [place] ??[address] Gender: ??F : ??1985 (Age: 36) Service: ??Laboratory Location: ?? [facility] #: ??[id number] Patient Type: ??[facility] SPECIMEN Taken: ??07/14/2021 Received: ??07/16/2021 Accessioned:: ??07/19/2021 Reported: ??07/22/2021 Physician(s): Sue Pratt M.D. [facility] Diagnosis: Source of Specimen: ? SCREENING [...] determined by the Surgical Pathology Department at [facility] as part of an ongoing quality analyst/technical writer program and in compliance with federally mandated [...] characteristics determined by the Surgical Pathology Department [facility]. ??It has not been cleared or approved by the U. S. Food and Drug Administration. Sue Pratt MD LAB CYTOLOGY ORDERABLES Final Re sult Performing Organization Address City/State/[facility] Co de Phone Number PATHOLOGY [facility] from Last 3 Months or Most Recently Relevant to Health Maintenance Insurance [facility] CHOICE PLUS [facility] HMO/PPO Address: [facility] [address] [place] [address] [employer] OPEN ACCESS Care Teams Hospital Scientist Relationship Specialty Start Date End Date Candelaria Colon MD [address] [place] [address] PCP - General Family Medicine 01/31/19
--- OUTSIDE RECORDS SUMMARY | 2024-06-14 13:11 | XMS_ITS | CONTINUITY OF CARE DOCUMENT ---
Author Name arunalva clyde Address Unknown Organization [facility] Address [address] [place] [address] [address] [place] [address] Phone [phone] Care Team Providers Care District Court Justice Name Role Phone Diego BARILLAS, Ephraim Unavailable [phone] HAYLEY TORREZ MD Unavailable HAYLEY TORREZ MD Unavailable [phone] INSURANCE PROVIDERS Payer name Policy type / Coverage type [place] red libertarian ID [facility] Other [id number]
--- OUTSIDE RECORDS SUMMARY | 2024-06-14 13:11 | XMS_ITS | Clinical Summary ---
Author Organization [address] Address [address] [place] [phone] Care Team Providers Care Mental Health Therapist Name Role Phone Candelaria Colon MD Primary [...] today. 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 Managed by gynecology. Continue vaginal control ring. Up-to-date on Pap smear. Assessment & Plan (04/03/2019 9:24 AM OPERATOR LIGHTS): Will check labs Will check pelvic ultrasound Does not do well will OCP's Will refer to BLUEPRINT MACHINE OPERATOR Update me after the visit [...] changes Assessment & Plan (04/25/2022 3:53 PM OPERATOR LIGHTS): Start DASH/low salt BMI Follow-up includes: nutrition [...] counseling. Assessment & Plan (04/03/2019 9:27 AM OPERATOR LIGHTS): BMI Follow-up includes: nutrition counseling. BMR calculated at:1617 calories/day To lose weight, daily calorie goal to lose a pound a week would be 1317 Start tracking using an clifton like [employer], loseit There are many different diet options- [...] on file Legal Sex Female 3:01 AM OPERATOR LIGHTS Gender Identity Female 06/05/2019 2:40 PM OPERATOR LIGHTS Sexual Orientation Lesbian 06/05/2019 2: 40 PM OPERATOR LIGHTS Obstetrics History Para Term AB IAB SAB [...] REFLEX TO GENOTYPING Routine 07/14/2021 11:10 AM OPERATOR LIGHTS Well woman exam Screening for cervical cancer from Last 3 Months or Most Recently Relevant to Health Maintenance Results * Pap and High Risk HPV, reflex to Genotyping (07/14/2021 11:10 AM OPERATOR LIGHTS) Thin prep (Pap test) 07/14/2021 11:10 AM OPERATOR LIGHTS 07/16/2021 11:10 AM OPERATOR LIGHTS Narrative PATHOLOGY [facility] - 07/22/2021 11:14 AM OPERATOR LIGHTS [facility] Department of Pathology [address] [place] [address] Final Report with Addendum Note to Patients: [...] details. Patient Name: ??ELVIRA VASQUEZ Address: ??[address] [facility], ?? [place], [place] ??[address] Gender: ??F : ??1985 (Age: 36) Service: ??Laboratory Location: ?? Hospital #: ??[id number] Patient Type: ??[facility] SPECIMEN Taken: ??07/14/2021 Received: ??07/16/2021 Accessioned:: ??07/19/2021 Reported: ??07/22/2021 Physician(s): Sue Pratt M.D. [facility] Diagnosis: Source of Specimen: ? SCREENING THIN [...] 59, 66 and 68. Test performed utilizing Gen-[employer] Aptima assay. ?? SOFIA Mauro(ASCP) ??Report Electronically [...] by the Surgical Pathology Department at [facility] as part of an ongoing water quality technician program and in compliance with federally mandated [...] characteristics determined by the Surgical Pathology Department [facility]. ??It has not been cleared or approved by the U. S. Food and Drug Administration. Sue Pratt MD LAB CYTOLOGY ORDERABLES Final Re sult PATHOLOGY [facility] from Last 3 Months or Most Recently Relevant to Health Maintenance Insurance [facility] CHOICE PLUS [facility] HMO/PPO Address: [address] [address] [place] [address] [facility] OPEN ACCESS [facility] HMO/PPO Address: [address] RONNIE Zarco [address] Care Teams Mental Health Therapist Relationship Specialty Start Date End Date Candelaria Colon MD [address] [place] [address] PCP - General Family Medicine 01/31/19
--- NOTE | 2024-06-14 13:29 | ECG_ITS ---
Test Date: 2024-06-14 13:32:13 Measurements Intervals [place] Rate: 80 P: 52 TN: 104 QRS: -20 QRSD: 107 T: 12 QT: 409 QTc: 474 Interpretive Statements SINUS RHYTHM WITH SHORT TN INTERVAL POSSIBLE LEFT ATRIAL ENLARGEMENT [-0.1mV P-WAVE IN V1/V2] VENTRICULAR PREEXCITATION / WPW CRITICAL TEST RESULT Compared to ECG 06/14/2024 11:46:49 Ventricular preexcitation now present Left ventricular hypertrophy no longer present ST (T wave) deviation no longer present Myocardial infarct finding no longer present Electronically Signed On 06-14-2024 23:55:31 SAMPLE BUILDER by Kari Dumont M.D.
--- OUTSIDE RECORDS SUMMARY | 2024-06-14 14:27 | XMS_ITS | Clinical Summary ---
Author Organization [facility] Administrative Offices Address [address] [place] [phone] Care Team Providers Care Community Affairs Manager Name Role Phone Unavailable Primary Care Provider [...] file Legal Sex Female 7:32 PM DIRECTOR OF HEALTH EDUCATION Gender Identity Not on file Sexual Orientation Not on file Last Filed Vital Signs Vital Sign Reading Time Taken Comments Blood Pressure 140/104 06/17/2022 11:11 AM DIRECTOR OF HEALTH EDUCATION Pulse - - Temperature - - Respiratory Rate - - Oxygen Saturation - - Inhaled Oxygen Concentration - - Weight 88.5 kg (195 lb) 06/17/2022 11:11 AM DIRECTOR OF HEALTH EDUCATION Height 165.7 cm (5' 5.25 ) 06/17/2022 11:[address] Body Mass Index 32.2 06/17/2022 11:11 AM DIRECTOR OF HEALTH EDUCATION Plan of Treatment Health Maintenance Due Date [...] patient's age to complete this topic Insurance [facility] [id number]
--- OUTSIDE RECORDS SUMMARY | 2024-06-14 14:27 | XMS_ITS | Clinical Summary ---
Author Organization [address] Address [address] [place] [phone] Care Team Providers Care Flight Simulator Teacher Name Role Phone Candelaria Colon MD Primary [...] today. Assessment & Plan (04/25/2022 3:53 PM BIOMETRICS SPECIALIST): Recheck was WNL I have asked her [...] leading to increase in fractures, CKD with termite technician use of PPI Menorrhagia with irregular cycle 04/03/2019 Assessment & Plan (12/08/2022 9:06 AM CDT): Controlled. Managed by gynecology. Continue vaginal control ring. Up-to-date on Pap smear. Assessment & Plan (04/03/2019 9:24 AM BIOMETRICS SPECIALIST): Will check labs Will check pelvic ultrasound Does not do well will OCP's Will refer to REGIONAL TANKER TRUCK DRIVER Update me after the visit Call for [...] changes Assessment & Plan (04/25/2022 3:53 PM BIOMETRICS SPECIALIST): Start DASH/low salt BMI Follow-up includes: nutrition [...] counseling. Assessment & Plan (04/03/2019 9:27 AM BIOMETRICS SPECIALIST): BMI Follow-up includes: nutrition counseling. BMR calculated at:1617 calories/day To lose weight, daily calorie goal to lose a pound a week would be 1317 Start tracking using an clifton like [employer], loseit There are many different diet options- [...] on file Legal Sex Female 3:01 AM BIOMETRICS SPECIALIST Gender Identity Female 06/05/2019 2:40 PM BIOMETRICS SPECIALIST Sexual Orientation Lesbian 06/05/2019 2: 40 PM BIOMETRICS SPECIALIST Obstetrics History Para Term AB IAB SAB [...] REFLEX TO GENOTYPING Routine 07/14/2021 11:10 AM BIOMETRICS SPECIALIST Well woman exam Screening for cervical cancer from Last 3 Months or Most Recently Relevant to Health Maintenance Results * Pap and High Risk HPV, reflex to Genotyping (07/14/2021 11:10 AM BIOMETRICS SPECIALIST) Thin prep (Pap test) 07/14/2021 11:10 AM BIOMETRICS SPECIALIST 07/16/2021 11:10 AM BIOMETRICS SPECIALIST Narrative PATHOLOGY [facility] - 07/22/2021 11:14 AM BIOMETRICS SPECIALIST [facility] Department of Pathology [address] [place] [address] Final Report with Addendum Note to Patients: [...] details. Patient Name: ??ELVIRA VASQUEZ Address: ??[address], ?? [place], [place] ??[address] Gender: ??F : ??1985 (Age: 36) Service: ??Laboratory Location: ?? Hospital #: ??[id number] Patient Type: ??[facility] SPECIMEN Taken: ??07/14/2021 Received: ??07/16/2021 [...] 59, 66 and 68. Test performed utilizing Gen-Blackfoot Aptima assay. ?? SOFIA Mauro(ASCP) ??Report Electronically [...] determined by the Surgical Pathology Department at [facility] as part of an ongoing quality assurance group leader program and in compliance with federally mandated [...] characteristics determined by the Surgical Pathology Department [facility]. ??It has not been cleared or approved by the U. S. Food and Drug Administration. Sue Pratt MD LAB CYTOLOGY ORDERABLES Final Re sult PATHOLOGY [facility] from Last 3 Months or Most Recently Relevant to Health Maintenance Insurance [facility] CHOICE PLUS [facility] OPEN ACCESS Care Teams Flight Simulator Teacher Relationship Specialty Start Date End Date Candelaria Colon MD [address] [place] [address] PCP - General Family Medicine 01/31/19
--- OUTSIDE RECORDS SUMMARY | 2024-06-14 14:27 | XMS_ITS | CONTINUITY OF CARE DOCUMENT ---
Author Name arunalva clyde Address Unknown Organization [facility] Office Address [address] [place] [address] [address] [place] [address] Phone [phone] Care Team Providers Care Manufacturing Plant Manager Name Role Phone Diego BARILLAS, Ephraim Unavailable [phone] HAYLEY TORREZ MD Unavailable HAYLEY TORREZ MD Unavailable [phone] INSURANCE PROVIDERS Payer name Policy type / Coverage type Sapphire red republican ID [facility] Other [id number]
--- OUTSIDE RECORDS SUMMARY | 2024-06-14 14:27 | XMS_ITS | Referral Summary ---
Author Organization [address] Address [address] [place] [phone] Care Team Providers Care Congressional Assistant Name Role Phone Candelaria Colon MD Primary [...] today. 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 Managed by gynecology. Continue vaginal control ring. Up-to-date on Pap smear. Assessment & Plan (04/03/2019 9:24 AM DIE INSPECTOR): Will check labs Will check pelvic ultrasound Does not do well will OCP's Will refer to HEEL FINISHER Update me after the visit Call for [...] changes Assessment & Plan (04/25/2022 3:53 PM DIE INSPECTOR): Start DASH/low salt BMI Follow-up includes: [...] counseling. Assessment & Plan (04/03/2019 9:27 AM DIE INSPECTOR): BMI Follow-up includes: nutrition counseling. BMR calculated at:1617 calories/day To lose weight, daily calorie goal to lose a pound a week would be 1317 Start tracking using an clifton like [employer], loseit There are many different diet options- [...] 02/16/2023(Deferr ed: Patient Refused),03/21/2021,02/13/2020(Deferre d: Patient Refused) [employer] ([employer]) SARS-CoV-2 Vaccination 07/24/2020 Tdap 10/06/2020 Social [...] on file Legal Sex Female 3:01 AM DIE INSPECTOR Gender Identity Female 06/05/2019 2:40 PM DIE INSPECTOR Sexual Orientation Lesbian 06/05/2019 2: 40 PM DIE INSPECTOR Last Filed Vital Signs Vital Sign Reading [...] REFLEX TO GENOTYPING Routine 07/14/2021 11:10 AM DIE INSPECTOR Well woman exam Screening for cervical cancer from Last 3 Months or Most Recently Relevant to Health Maintenance Results * Pap and High Risk HPV, reflex to Genotyping (07/14/2021 11:10 AM DIE INSPECTOR) Thin prep (Pap test) 07/14/2021 11:10 AM DIE INSPECTOR 07/16/2021 11:10 AM DIE INSPECTOR Narrative PATHOLOGY [facility] - 07/22/2021 11:14 AM DIE INSPECTOR [facility] Department of Pathology [address] [place] [address] Final Report with Addendum Note to Patients: [...] details. Patient Name: ??ELVIRA VASQUEZ Address: ??[address], ?? [place], [place] ??[address] Gender: ??F : ??1985 (Age: 36) Service: ??Laboratory Location: ?? [facility] #: ??[id number] Patient Type: ??[facility] SPECIMEN Taken: ??07/14/2021 Received: ??07/16/2021 Accessioned:: ??07/19/2021 Reported: ??07/22/2021 Physician(s): Sue Pratt M.D. [facility] Diagnosis: Source of Specimen: ? SCREENING THIN [...] determined by the Surgical Pathology Department at [facility] as part of an ongoing quality control industrial engineer program and in compliance with federally [...] determined by the Surgical Pathology Department [facility]. ??It has not been cleared or approved by the U. S. Food and Drug Administration. Sue Pratt MD LAB CYTOLOGY ORDERABLES Final Re sult Performing Organization Address City/State/[facility] Co de Phone Number PATHOLOGY [facility] from Last 3 Months or Most Recently Relevant to Health Maintenance Insurance [facility] CHOICE PLUS [employer] OPEN ACCESS Care Teams Congressional Assistant Relationship Specialty Start Date End Date Candelaria Colon MD [address] [place] [address] PCP - General Family Medicine 01/31/19
[2024-06-14 14:48] LABS: Basophils Percent Auto 0.7 % (0.2-1.2); Eosinophils Absolute Auto 0.1 K/mm3 (0-0.3); Eosinophils Percent Auto 0.9 % (0-4.4); Hematocrit 43.3 % (37.0-47.0); Hemoglobin 14.7 g/dL (12.0-15.0); Immature Granulocyte Absolute 0.01 K/mm3 (0.00-0.031); Immature Granulocyte Percent A 0.2 % (0-0.5); Lymphocytes Absolute Auto 2.05 K/mm3 (0.9-3.2); Mean Corpuscular HGB Conc 33.9 g/dl (32-36); Mean Corpuscular Hemoglobin 31.8 pg (26-34); Mean Corpuscular Volume 93.7 fl (80-100); Mean Platelet Volume 10.6 fl (7.4-10.4); Monocytes Absolute Auto 0.3 K/mm3 (0.1-0.6); Monocytes Percent Auto 5.5 % (2.6-8.5); Neutrophils Absolute Auto 3.4 K/mm3 (1.3-6.7); Neutrophils Percent Auto 57.7 % (45.5-73.1); Platelet Count Result 303 k/mm3 (150-375); Red Blood Count 4.62 M/mm3 (4.2-5.4); White Blood Count 5.9 K/mm3 (4.5-10.0)
[2024-06-14 15:00] LABS: Alanine Aminotransferase 33 U/L (6-35); Albumin Level 4.7 g/dL (3.5-5.1); Alkaline Phosphatase 52 U/L (38-126); Anion Gap 12 mmol/L (4-12); Aspartate Amino Transferase 35 U/L (14-36); Bilirubin,Total 0.7 mg/dL (0.2-1.3); Blood Urea Nitrogen 20 mg/dL (7-17); Calcium 9.9 mg/dL (8.4-10.2); Carbon Dioxide 24 mmol/L (22-30); Chloride 102 mmol/L (98-107); Estimated Glomerular Filt Rate > 60; Glucose 83 mg/dL (65-110); Sodium 138 mmol/L (137-145)
[2024-06-14 15:11] LABS: Troponin I < 0.012 ng/mL (0.000-0.034)
--- NOTE | 2024-06-14 15:24 | ED.ARRPALP ---
HPI - Arrhythmia/Palpitations General Chief Complaint: Arrhythmia/Palpitations Stated Complaint: palpatations Time Seen by Provider: 06/14/24 14:08 Source: patient Mode of arrival: ambulatory Limitations: no limitations History of Present Illness HPI narrative: 39-year-old otherwise healthy here with the complaints of intermittent palpitations for last several months however for the past few days denies any chest pain all lightheaded. MD complaint: palpitations Onset (ago): week(s) Duration: intermittent Severity: mild Associated symptoms: denies other symptoms Related Data Home Medications ?Medication ?Instructions ?Recorded ?Confirmed ?Last Taken ?Type azelastine 137 mcg (0.1 %) nasal 137 mcg intranasal Q12H 09/19/23 05/28/24 Unknown History spray fluticasone propionate 50 1 spray intranasal DAILY 09/19/23 05/28/24 Unknown History mcg/actuation nasal spray,suspension (Flonase Allergy Relief) estradiol acetate 0.05 mg/24 hr 1 vag ring vaginal [id number] 11/16/23 05/28/24 Unknown History vaginal ring Allergies Allergy/AdvReac Type Severity Reaction Status Date / Time No Known Allergies Allergy Unverified 05/28/24 09:01 Review of Systems Review of Systems: All systems reviewed & are unremarkable except as noted in HPI and below Constitutional: Constitutional: Reports no additional constitutional complaints Eyes: Eyes: Reports no additional eye complaints ENT: Reports system reviewed and no additional complaints, except as documented Cardiovascular: Cardiovascular: Reports as per HPI and Reports no additional cardiovascular complaints Respiratory: Respiratory: Reports no additional respiratory complaints Gastrointestinal: Gastrointestinal: Reports no additional gastrointestinal complaints Musculoskeletal: Musculoskeletal: Reports no additional musculoskeletal complaints Integumentary/Breasts: Skin/Breast: Reports system reviewed and no additional complaints, except as docu Neurologic: Reports system reviewed and no additional complaints, except as documented Endocrine: Endocrine: Reports no additional endocrine complaints PENDING SALE TO [facility] Past Medical History Medical History Palpitation EKG on 05/21/2024 with sinus rhythm with short RI interval and frequent PVCs. TSH 1.68, free T4 1.02, T3 total 1.53, magnesium 2.0 on 05/21/2024. Ulnar neuropathy of left upper extremity Paresthesia of hand Acne Elevated BP without diagnosis of hypertension Encounter to establish care BMI 30.0-30.9,adult Anemia Hemoglobin 12.8 with iron 131 with 31% saturation and ferritin 56.3 on 05/21/2024. Left wrist pain Localized swelling, mass and lump, right lower limb Surgical History Surgical History Hx of tonsillectomy 1988 Family History Family History Father Diabetes mellitus Mother Hypertension Grandparent Diabetes mellitus Heart disease Grandparent Diabetes mellitus Heart disease Social History Social History Smoking status: Never smoker Alcohol intake: never Substance use: never Course Vital Signs Vital signs: Vital Signs Pulse Rate 79 06/14/24 13:42 Respiratory Rate 16 06/14/24 13:42 Pulse Oximetry 100 06/14/24 13:42 Pulse Rate 80 06/14/24 14:50 Respiratory Rate 16 06/14/24 14:45 Blood Pressure 136/80 06/14/24 14:45 Pulse Oximetry 98 06/14/24 14:45 Oxygen Delivery Room Air 06/14/24 14:50 MDM - Arrhythmia/Palpitations Differential Diagnosis Differential diagnosis: Likely palpitations, anxiety, sinus tachycardia and supraventricular tachycardia Lab Data Attestation: I reviewed the patient's lab results. 06/14/24 14:40 06/14/24 14:40 Labs: Lab Results 06/14/24 Range/Units 14:40 WBC 5.9 (4.5-10.0) K/mm3 RBC 4.62 (4.2-5.4) M/mm3 Hgb 14.7 (12.0-15.0) g/dL Hct 43.3 (37.0-47.0) % MCV 93.7 (80-100) fl MCH 31.8 (26-34) pg MCHC 33.9 (32-36) g/dl RDW 12.0 (11.5-14.5) % Plt Count 303 (150-375) k/mm3 MPV 10.6 H (7.4-10.4) fl Immature Gran % (Auto) 0.2 (0-0.5) % Neut % (Auto) 57.7 (45.5-73.1) % Lymph % (Auto) 35.0 (18.3-44.2) % Cedar % (Auto) 5.5 (2.6-8.5) % Eos % (Auto) 0.9 (0-4.4) % Baso % (Auto) 0.7 (0.2-1.2) % Lymph # (Auto) 2.05 (0.9-3.2) K/mm3 Cedar # (Auto) 0.3 (0.1-0.6) K/mm3 Eos # (Auto) 0.1 (0-0.3) K/mm3 Baso # (Auto) 0.0 (0.0-0.1) K/mm3 Abs Immat Gran (auto) 0.01 (0.00-0.031) K/mm3 Absolute Neuts (auto) 3.4 (1.3-6.7) K/mm3 Absolute Nucleated RBC 0.000 (0.0-0.012) K/mm3 Nucleated RBC % 0.0 (0.0-0.2) % Sodium 138 (137-145) mmol/L Potassium 4.0 (3.4-5.0) mmol/L Chloride 102 (98-107) mmol/L Carbon Dioxide 24 (22-30) mmol/L Anion Gap 12 (4-12) mmol/L BUN 20 H (7-17) mg/dL Creatinine 0.81 (0.7-1.0) mg/dL Estim Creat Clear Calc Not Reportable Estimated GFR > 60 (59 - ) Glucose 83 (65-110) mg/dL Calcium 9.9 (8.4-10.2) mg/dL Total Bilirubin 0.7 (0.2-1.3) mg/dL AST 35 (14-36) U/L ALT 33 (6-35) U/L Alkaline Phosphatase 52 (38-126) U/L Troponin I < 0.012 (0.000-0.034) ng/mL Total Protein 8.0 (6.3-8.2) g/dL Albumin 4.7 (3.5-5.1) g/dL TSH Pending ECG Data EKG #1: EKG Interpretation: normal rate, no ectopy, non-specific ST changes and right axis Discharge Plan Discharge Clinical Impression: Palpitations Patient Disposition: Home, Self-Care Condition: Stable Instructions: Heart Palpitations (ED) Patient Language: Gibraltarian Prescriptions: No Action fluticasone propionate [Flonase Allergy Relief] 50 mcg/actuation spray,suspension 1 spray intranasal DAILY Rx Instructions: administer into each nostril azelastine 137 mcg (0.1 %) aerosol,spray 137 mcg intranasal Q12H Rx Instructions: administer into each nostril estradiol acetate 0.05 mg/24 hr ring 1 vag ring vaginal [id number] spironolactone 25 mg tablet 25 mg PO DAILY Qty: 90 3RF metoprolol succinate 25 mg tablet extended release 24 hr 25 mg PO DAILY Qty: 30 5RF Other Ambulatory Orders: CA cardiac event monitor (Routine) Timeframe: 7 Days Location: Determined by Patient Ordered By: Henrique Pryor Follow-up/Referrals: Henrique Pryor DO [Physician] - Juanita Delarosa NP [Primary Care Provider] - Time of Disposition: 15:25
== END 2024-06-14 15:52 | disposition home or self-care (01) ==
PROVIDERS: Emergency Provider Family Medicine; PCP Nurse Practitioner Family
DX: R00.2 Palpitations (principal); Z86.2 Personal history of diseases of the blood and blood-forming organs and certain disorders involving the immune mechanism; R94.31 Abnormal electrocardiogram [ECG] [EKG]
CPT/HCPCS: 36415; 80053; 84443; 84484; 85025; 93005; 93242; 99284

== ENCOUNTER 2024-07-26 09:28 | Outpatient (CLI) | payer OTHER, SELFPAY ==
--- OUTSIDE RECORDS SUMMARY | 2024-07-26 10:00 | XMS_ITS | Clinical Summary ---
Author Organization [facility] Administrative Offices Address [address] [place] [phone] Care Team Providers Care Gold Letterer Name Role Phone Unavailable Primary Care Provider [...] on file Legal Sex Female 7:32 PM SEISMOGRAPH HELPER Gender Identity Not on file Sexual Orientation Not on file Last Filed Vital Signs Vital Sign Reading Time Taken Comments Blood Pressure 140/104 06/17/2022 11:11 AM SEISMOGRAPH HELPER Pulse - - Temperature - - Respiratory Rate - - Oxygen Saturation - - Inhaled Oxygen Concentration - - Weight 88.5 kg (195 lb) 06/17/2022 11:11 AM SEISMOGRAPH HELPER Height 165.7 cm (5' 5.25 ) 06/17/2022 11:[address] Body Mass Index 32.2 06/17/2022 11:11 AM SEISMOGRAPH HELPER Plan of Treatment Health Maintenance Due Date [...] patient's age to complete this topic Insurance [facility] [id number]
--- OUTSIDE RECORDS SUMMARY | 2024-07-26 10:00 | XMS_ITS | Clinical Summary ---
Author Organization [facility] Address [facility] [place] [address] Care Team Providers Care Fnp Name Role Phone Henrique Pryor DO Primary Care Provider [phone] Encounters Date Type Department Care Team Description 07/25/2024 [facility] [address] [address] Dagmar Beebe, RMA Consult from Last 3 Months Social History Tobacco Use Types Packs/Day Years Used Date Smoking Tobacco: Never Assessed Comments Unknown Sex and Gender Information Value Date Recorded Sex Assigned at Not on file Legal Sex Female 11:21 AM BILLING CONTROL CLERK Gender Identity Not on file Sexual Orientation Not on file Plan of Treatment Health Maintenance Due Date Last Done Comments Cervical Cancer Screening Pa p Smear (Age 30 to 64) Every 3 Years 1985 Annual Physical 01/24/1988 Hepatitis C 2003 DTaP, Tdap and Td Vaccines ( 1 - Tdap) 01/24/2004 Hepatitis B Vaccines (1 of 3 - 19+ 3-dose series) 01/24/2004 Cervical Cancer Screening Pa p with HPV Testing (Age 30 to 64) Every 5 Years 2015 Cervical Cancer Screening with HPV 2015 COVID-19 Vaccine ( - 2023-2 5 season) 2024 Influenza Adult (#1) 2024 HPV Vaccines Aged Out No longer eligi ble based on patient's age to complete this topic Meningococcal B Vaccine Aged Out No l onger eligible based on patient's age to complete this topic Meningococcal Vaccine Aged Out No racquel bridgette eligible based on patient's age to complete this topic Pneumococcal Vaccine: Pediat rics (0 to 5 Years) and At-Risk Patients (6 to 64 Years) Aged Out No longer eligible b ased on patient's age to complete this topic RSV Immunizations Under 20 Months Aged Out No longer eligible based on patient's age to complete this topic Insurance [employer] Care Teams Fnp Relationship Specialty Start Date End Date Henrique Pryor DO [address] [place] [address] PCP - General INTERNAL MEDICINE 07/25/24
--- OUTSIDE RECORDS SUMMARY | 2024-07-26 10:01 | XMS_ITS | Encounter Summary ---
Author Organization [facility] Address [address] [place] [address] Care Team Providers Care Banking Center Manager Name Role Phone Henrique Pryor DO Primary Care Provider Reason for Visit * Reason Onset Date Comments Consult 07/25/2024 Encounter Details Date Type Department Care Team (Late st Contact Info) Description 07/25/[address] [address] Dagmar Beebe RMA Consult Social History Tobacco Use Types Packs/Day Years Used Date Smoking Tobacco: Never Assessed Comments Unknown Sex and Gender Information Value Date Recorded Sex Assigned at Not on file Legal Sex Female 11:21 AM TRIM CREW SUPERVISOR Gender Identity Not on file Sexual Orientation Not on file documented as of this encounter Progress Notes * CATARINO Mcghee - 07/25/2024 4:10 PM CST Left message to schedule EP consult per Dr Pryor CREW SUPERVISOR documented in this encounter Plan of Treatment Not on file documented as of this encounter Visit Diagnoses Not on filedocumented in this encounter Care Teams Banking Center Manager Relationship Specialty Start Date End Date Henrique Pryor DO [address] [place] [address] PCP - General INTERNAL MEDICINE 07/25/24 documented as of this encounter
--- OUTSIDE RECORDS SUMMARY | 2024-07-26 10:01 | XMS_ITS | Clinical Summary ---
Author Organization [address] Address [address] [address] Care Team Providers Care Apparel Trimmings Sales Representative Name Role Phone Candelaria Colon MD Primary Care Provi balibr Allergies No known active allergies Medications spironolactone [...] today. Assessment & Plan (04/25/2022 3:53 PM RESIDENTIAL REAL ESTATE AGENT): Recheck was WNL I have asked her [...] leading to increase in fractures, CKD with slip cover sewer use of PPI Menorrhagia with irregular cycle 04/03/2019 Assessment & Plan (12/08/2022 9:06 AM CDT): Controlled. Managed by gynecology. Continue vaginal control ring. Up-to-date on Pap smear. Assessment & Plan (04/03/2019 9:24 AM RESIDENTIAL REAL ESTATE AGENT): Will check labs Will check pelvic ultrasound Does not do well will OCP's Will refer to CAUSTIC ROOM OPERATOR Update me after the visit Call [...] changes Assessment & Plan (04/25/2022 3:53 PM RESIDENTIAL REAL ESTATE AGENT): Start DASH/low salt BMI Follow-up includes: nutrition [...] counseling. Assessment & Plan (04/03/2019 9:27 AM RESIDENTIAL REAL ESTATE AGENT): BMI Follow-up includes: nutrition counseling. BMR calculated at:1617 calories/day To lose weight, daily calorie goal to lose a pound a week would be 1317 Start tracking using an clifton like [employer], loseit There are many different diet options- [...] to the ER for anything emergent Immunizations Immunization Administration Dates Next Due Flucelvax Influenza Quad [...] on file Legal Sex Female 3:01 AM RESIDENTIAL REAL ESTATE AGENT Gender Identity Female 06/05/2019 2:40 PM RESIDENTIAL REAL ESTATE AGENT Sexual Orientation Lesbian 06/05/2019 2: 40 PM RESIDENTIAL REAL ESTATE AGENT Obstetrics History Para Term AB IAB SAB Ectopic Multiple Livin g Live Births 0 0 0 0 0 0 0 0 0 0 0 Last Filed Vital Signs Vital Sign Reading Time Taken Comments Blood Pressure 110/74 02/16/2023 1:02 PM CDT Pulse 55 02/16/2023 1:02 PM CDT Temperature 36.4 C (97.6 F) 02/16/2023 1:02 PM CDT Respiratory Rate 12 02/16/2023 1:02 PM CDT [...] REFLEX TO GENOTYPING Routine 07/14/2021 11:10 AM RESIDENTIAL REAL ESTATE AGENT Well woman exam Screening for cervical cancer from Last 3 Months or Most Recently Relevant to Health Maintenance Results * Pap and High Risk HPV, reflex to Genotyping (07/14/2021 11:10 AM RESIDENTIAL REAL ESTATE AGENT) Thin prep (Pap test) 07/14/2021 11:10 AM RESIDENTIAL REAL ESTATE AGENT 07/16/2021 11:10 AM RESIDENTIAL REAL ESTATE AGENT Narrative PATHOLOGY [facility] - 07/22/2021 11:14 AM RESIDENTIAL REAL ESTATE AGENT [facility] Department of Pathology [address] [place] [address] Final Report with Addendum Note to Patients: [...] questions and explain the details. Patient Name: ELVIRA VASQUEZ Address: [address] [place] [address] Gender: F : 1985 (Age: 36) Service: Laboratory Location: [facility] #: [id number] Patient Type: [facility] SPECIMEN Taken: 07/14/2021 Received: 07/16/2021 Accessioned:: 07/19/2021 Reported: 07/22/2021 Physician(s): Sue Pratt M.D. [facility] Diagnosis: Source of Specimen: SCREENING THIN PREP IMAGED PAP w/ HPV Specimen Adequacy: - Satisfactory for evaluation; endocervical/transformation zone component present General Category: - Negative for intraepithelial lesion or malignancy SOFIA Mauro(ASCP) Report Electronically Reviewed and Signed Out By SOFIA Mauro(ASCP) 07/22/2021 11:14:53 Addenda: HPV Test Interpretation NEGATIVE for types 16, 18, 31, 33, 35, 39, 45, 51, 52, 56, 58, 59, 66 and 68. Test performed utilizing Gen-Probe Aptima assay. SOFIA Mauro(ASCP) Report Electronically Reviewed and Signed Out By SOFIA Mauro(ASCP) 07/19/2021 13:38:57 Specimen(s) Received: A: SCREENING THIN PREP IMAGED PAP w/ HPV Clinical History: Contraceptive History: Contraceptive ring The Pap test is a screening test used to aid in the detection of cervical cancer and its precursors. It should not be the sole means by which malignant and premalignant lesions are diagnosed. Both false negative and false positive results may occur. It also has poor sensitivity for the detection of endometrial lesions and should not be used to evaluate suspected endometrial abnormalities. For these reasons it is most important to obtain Pap tests at regular intervals. The performance characteristics of some immunohistochemical stains, fluorescence in-situ hybridization tests and immunophenotyping by flow cytometry cited in this report (if any) were determined by the Surgical Pathology Department at [facility] as part of an ongoing quality specialist program and in compliance with federally mandated regulations drawn from the Clinical Laboratory Improvement Act of 1988 (CLIA '88). Some of these tests rely on the use of analyte specific reagents and are subject to specific labeling requirements by the US Food and Drug Administration. Such diagnostic tests may only be performed in a facility that is certified by the Department of Health and Human Services as a high complexity laboratory under CLIA '88. The FDA has determined that such clearance or approval is not necessary. This test is used for clinical purposes. It should not be regarded as investigational or for research. Nevertheless, federal rules concerning the medical use of analyte specific reagents require that the following disclaimer be attached to the report: This test was developed and its performance characteristics determined by the Surgical Pathology Department [facility]. It has not been cleared or approved by the U. S. Food and Drug Administration. Sue Pratt MD LAB CYTOLOGY ORDERABLES Final Re sult [facility] Organization Address City/State/ZIP Co de Phone Number [facility] from Last 3 Months or Most Recently Relevant to Health Maintenance Insurance [facility] CHOICE PLUS [employer] OPEN ACCESS Care Teams Apparel Trimmings Sales Representative Relationship Specialty Start Date End Date Candelaria Colon MD [facility] [address] [place] [phone] PCP - General Family Medicine 01/31/19
--- OUTSIDE RECORDS SUMMARY | 2024-07-26 10:01 | XMS_ITS | CONTINUITY OF CARE DOCUMENT ---
Author Name arunalva clyde Address Unknown Organization [facility] Office Address [address] [place] [address] [address] [place] [address] Phone [phone] Care Team Providers Care Facility Manager Name Role Phone Diego BARILLAS, Ephraim Unavailable HAYLEY TORREZ MD Unavailable [phone] HAYLEY TORREZ MD Unavailable [phone] INSURANCE PROVIDERS Payer name Policy type / Coverage type [place] red constitution party ID [facility] Other [id number]
--- OUTSIDE RECORDS SUMMARY | 2024-07-26 10:01 | XMS_ITS | Referral Summary ---
Author Organization [address] Address [address] [address] Care Team Providers Care Marine Engineering Teacher Name Role Phone Candelaria Colon MD [...] today. Assessment & Plan (04/25/2022 3:53 PM MACHINIST HELPER): Recheck was WNL I have asked her [...] to increase in fractures, CKD with long term care pharmacist use of PPI Menorrhagia with irregular cycle 04/03/2019 Assessment & Plan (12/08/2022 9:06 AM CDT): Controlled. Managed by gynecology. Continue vaginal control ring. Up-to-date on Pap smear. Assessment & Plan (04/03/2019 9:24 AM MACHINIST HELPER): Will check labs Will check pelvic ultrasound Does not do well will OCP's Will refer to ICE DELIVERY DRIVER Update me after the visit Call [...] changes Assessment & Plan (04/25/2022 3:53 PM MACHINIST HELPER): Start DASH/low salt BMI Follow-up includes: nutrition [...] counseling. Assessment & Plan (04/03/2019 9:27 AM MACHINIST HELPER): BMI Follow-up includes: nutrition counseling. BMR calculated at:1617 calories/day To lose weight, daily calorie goal to lose a pound a week would be 1317 Start tracking using an clifton like [employer], loseit There are many different diet options- [...] 02/16/2023(Deferr ed: Patient Refused),03/21/2021,02/13/2020(Deferre d: Patient Refused) Xochitl (So-Shee) Gold mines (J&J) SARS-CoV-2 Vaccination 07/24/2020 Tdap 10/06/2020 Social [...] on file Legal Sex Female 3:01 AM MACHINIST HELPER Gender Identity Female 06/05/2019 2:40 PM MACHINIST HELPER Sexual Orientation Lesbian 06/05/2019 2: 40 PM MACHINIST HELPER Last Filed Vital Signs Vital Sign Reading [...] REFLEX TO GENOTYPING Routine 07/14/2021 11:10 AM MACHINIST HELPER Well woman exam Screening for cervical cancer from Last 3 Months or Most Recently Relevant to Health Maintenance Results * Pap and High Risk HPV, reflex to Genotyping (07/14/2021 11:10 AM MACHINIST HELPER) Thin prep (Pap test) 07/14/2021 11:10 AM MACHINIST HELPER 07/16/2021 11:10 AM MACHINIST HELPER Narrative PATHOLOGY [facility] - 07/22/2021 11:14 AM MACHINIST HELPER [facility] Department of Pathology [address] [place] [address] Final Report with Addendum Note to Patients: [...] the details. Patient Name: ELVIRA VASQUEZ Address: [address] [place], [place] [id number] Gender: F : 1985 (Age: 36) Service: Laboratory Location: [facility] #: [id number] Patient Type: [facility] SPECIMEN Taken: 07/14/2021 Received: 07/16/2021 Accessioned:: 07/19/2021 Reported: 07/22/2021 Physician(s): Sue Pratt M.D. [facility] Diagnosis: Source of Specimen: SCREENING THIN PREP IMAGED PAP w/ HPV Specimen Adequacy: - Satisfactory for evaluation; endocervical/transformation zone component present General Category: - Negative for intraepithelial lesion or malignancy SOFIA Mauro(ASCP) Report Electronically Reviewed and Signed Out By JERZY MauroASCP) 07/22/2021 11:14:53 Addenda: HPV Test Interpretation NEGATIVE for types 16, 18, 31, 33, 35, 39, 45, 51, 52, 56, 58, 59, 66 and 68. Test performed utilizing [employer] Aptima assay. SOFIA Mauro(ASCP) Report Electronically Reviewed and Signed Out By SOFIA Mauro(ASC) 07/19/2021 13:38:57 Specimen(s) Received: A: SCREENING THIN [...] determined by the Surgical Pathology Department at [facility] as part of an ongoing senior quality analyst program and in compliance with federally mandated [...] characteristics determined by the Surgical Pathology Department [facility]. It has not been cleared or approved by the U. S. Food and Drug Administration. Sue Pratt MD LAB CYTOLOGY ORDERABLES Final Re sult [facility] from Last 3 Months or Most Recently Relevant to Health Maintenance Insurance [facility] CHOICE PLUS [facility] OPEN ACCESS Care Teams Marine Engineering Teacher Relationship Specialty Start Date End Date Candelaria Colon MD [facility] [address] [place] [id number] PCP - General Family Medicine 01/31/19
[2024-07-26 12:04] LABS: Influenza A QL RT-PCR Positive (Negative); Influenza B QL RT-PCR Negative (Negative)
== END 2024-07-26 09:29 | disposition home or self-care (01) ==
LOC: ANHLAB 09:29
PROVIDERS: PCP Nurse Practitioner Family; Visit Provider Family Medicine
DX: J11.1 Influenza due to unidentified influenza virus with other respiratory manifestations (principal)
CPT/HCPCS: 87502

== ENCOUNTER 2024-08-08 07:31 | Outpatient (CLI) | payer OTHER, SELFPAY ==
--- OUTSIDE RECORDS SUMMARY | 2024-08-08 07:34 | XMS_ITS | Clinical Summary ---
Author Organization [facility] Administrative Offices Address [address] [place] [address] Care Team Providers Care Gas Meter Repair Supervisor Name Role Phone Unavailable Primary Care Provider [...] on file Legal Sex Female 7:32 PM PHOTO GRAPHICS LIBRARIAN Gender Identity Not on file Sexual Orientation Not on file Last Filed Vital Signs Vital Sign Reading Time Taken Comments Blood Pressure 140/104 06/17/2022 11:11 AM PHOTO GRAPHICS LIBRARIAN Pulse - - Temperature - - Respiratory Rate - - Oxygen Saturation - - Inhaled Oxygen Concentration - - Weight 88.5 kg (195 lb) 06/17/2022 11:11 AM PHOTO GRAPHICS LIBRARIAN Height 165.7 cm (5' 5.25 ) 06/17/2022 11:[address] Body Mass Index 32.2 06/17/2022 11:11 AM PHOTO GRAPHICS LIBRARIAN Plan of Treatment Health Maintenance Due Date Last Done Comments HEPATITIS B VACCINES (1 of 3 - 19+ 3-dose series) 01/24/2004 PAP SMEAR 2015 INFLUENZA VACCINE (#1) 2023 2, 02/25/2021, 03/04/2020, Additional history exists COVID-19 Vaccine (2 - season) 2024 07/24/2020 DTAP/TDAP/TD VACCINES (2 - Td or Tdap) 10/06/2030 10/06/2020 HPV VACCINES Aged Out No longer eligi ble based on patient's age to complete this topic Insurance [facility] [id number]
--- OUTSIDE RECORDS SUMMARY | 2024-08-08 07:34 | XMS_ITS | Clinical Summary ---
Author Organization [facility] Address [address] [place] [address] Care Team Providers Care Rolling Down Machine Operator Name Role Phone Henrique Pryor DO Primary Care Provider [phone] Encounters Date Type Department Care Team Description 07/25/2024 [facility]phone [facility] [address] [place], [place] [id number] Dagmar Beebe, RMA Consult from Last 3 Months Social History Tobacco Use Types Packs/Day Years Used Date Smoking Tobacco: Never Assessed Comments Unknown Sex and Gender Information Value Date Recorded Sex Assigned at Not on file Legal Sex Female 11:21 AM SENIOR ADMINISTRATIVE SUPPORT Gender Identity Not on file Sexual Orientation Not on file Plan of Treatment Upcoming Encounters Date Type Department Care Team (Late st Contact Info) Description 09/10/2024 1:45 PM CDT Office Visit [facility], [facility] [address] [place], [place] [id number] Ramu Laurent MD [facility]. [facility] [address] [place], [place] [id number] Health Maintenance Due Date Last Done Comments [...] Cancer Screening with HPV 2015 COVID-19 Vaccine (2023-2 5 season) 2024 Influenza Adult (#1) 2024 [...] patient's age to complete this topic Insurance [facility] [place] [id number] Care Teams Rolling Down Machine Operator Relationship Specialty Start Date End Date Henrique Pryor DO [address] [place] [address] PCP - General INTERNAL MEDICINE 07/25/24
--- NOTE | 2024-08-08 07:42 | EST_ITS ---
Patient Info Name: Maria C Marino Age: 39 years : 1985 Gender: Female Ht: 65 in Wt: 196 lbs BSA: 2.05 m2 Exam Date: 08/08/2024 8:53 AM Exam Location: Echo Lab Patient Status: Outpatient Admit Date: 08/08/2024 Staff Ordering Physician: Henrique Pryor DO Attending Provider: Henrique Pryor DO Exercise Technologist: Joleen Villagran RDCS Exercise Physician: Henrique Pryor DO Exam Type: CA stress test treadmill Study Info Indications I45.6 - Pre-excitation syndrome A treadmill exercise stress test was performed. Summary 1. 1. Negative Sadi exercise stress test for ischemic ST changes by ECG criteria. 2. 2. Good functional capacity, achieving 10 METs of workload. 3. 3. Baseline hypertension. 4. 4. Appropriate HR response to exercise. 5. 5. Appropriate HR recovery at 1 minute post exercise. 6. 6. No imaging with stress testing. 7. 7. Patient informed of the above results. Protocol: Sadi Stress ECG Details Stage: REST Duration (min): 1 min : 0 sec Speed (mph): 0.0 Grade (%): 0 HR (bpm): 80 SBP (mmHg): 144 DBP (mmHg): 88 METS: --- Stage: REST Duration (min): 3 min : 19 sec Speed (mph): 0.0 Grade (%): 0 HR (bpm): 90 SBP (mmHg): 144 DBP (mmHg): 88 METS: --- Stage: STAGE 1 Duration (min): 1 min : 0 sec Speed (mph): 1.7 Grade (%): 10 HR (bpm): 113 SBP (mmHg): 144 DBP (mmHg): 88 METS: --- Stage: STAGE 1 Duration (min): 2 min : 0 sec Speed (mph): 1.7 Grade (%): 10 HR (bpm): 124 SBP (mmHg): 144 DBP (mmHg): 88 METS: --- Stage: STAGE 1 Duration (min): 3 min : 0 sec Speed (mph): 1.7 Grade (%): 10 HR (bpm): 127 SBP (mmHg): 179 DBP (mmHg): 71 METS: --- Stage: STAGE 2 Duration (min): 1 min : 0 sec Speed (mph): 2.5 Grade (%): 12 HR (bpm): 143 SBP (mmHg): 179 DBP (mmHg): 71 METS: --- Stage: STAGE 2 Duration (min): 2 min : 0 sec Speed (mph): 2.5 Grade (%): 12 HR (bpm): 146 SBP (mmHg): 176 DBP (mmHg): 76 METS: --- Stage: STAGE 2 Duration (min): 3 min : 0 sec Speed (mph): 2.5 Grade (%): 12 HR (bpm): 157 SBP (mmHg): 176 DBP (mmHg): 76 METS: --- Stage: STAGE 3 Duration (min): 1 min : 0 sec Speed (mph): 3.4 Grade (%): 14 HR (bpm): 164 SBP (mmHg): 176 DBP (mmHg): 76 METS: --- Stage: STAGE 3 Duration (min): 2 min : 0 sec Speed (mph): 3.4 Grade (%): 14 HR (bpm): 173 SBP (mmHg): 199 DBP (mmHg): 85 METS: --- Stage: STAGE 3 Duration (min): 2 min : 0 sec Speed (mph): 3.4 Grade (%): 14 HR (bpm): 173 SBP (mmHg): 199 DBP (mmHg): 85 METS: --- Stage: RECOVERY Duration (min): 0 min : 59 sec Speed (mph): 0.0 Grade (%): 0 HR (bpm): 141 SBP (mmHg): 185 DBP (mmHg): 84 METS: --- Stage: RECOVERY Duration (min): 1 min : 59 sec Speed (mph): 0.0 Grade (%): 0 HR (bpm): 123 SBP (mmHg): 185 DBP (mmHg): 84 METS: --- Stage: RECOVERY Duration (min): 2 min : 59 sec Speed (mph): 0.0 Grade (%): 0 HR (bpm): 102 SBP (mmHg): 171 DBP (mmHg): 83 METS: --- Stage: RECOVERY Duration (min): 3 min : 59 sec Speed (mph): 0.0 Grade (%): 0 HR (bpm): 99 SBP (mmHg): 171 DBP (mmHg): 83 METS: --- Stage: RECOVERY Duration (min): 4 min : 59 sec Speed (mph): 0.0 Grade (%): 0 HR (bpm): 93 SBP (mmHg): 152 DBP (mmHg): 83 METS: --- Stage: RECOVERY Duration (min): 5 min : 59 sec Speed (mph): 0.0 Grade (%): 0 HR (bpm): 96 SBP (mmHg): 152 DBP (mmHg): 83 METS: --- Stage: RECOVERY Duration (min): 6 min : 42 sec Speed (mph): 0.0 Grade (%): 0 HR (bpm): 89 SBP (mmHg): 142 DBP (mmHg): 83 METS: --- Rest HR: 90 bpm Peak HR: 173 bpm Rest Sys BP: 144 mmHg Peak Sys BP: 199 mmHg Max Pred HR: 181 bpm % Max Pred HR: 96 % Target HR: 154 bpm Max RPP: 34,427 bpm*mmHg Manzanares Score: -7 Termination Reason: Reached target heart rate or workload Cardiac Symptoms: Shortness of breath Max ST Seg Deviation: -3.00 mm Total Time: 8 min : 0 sec Rest Lopez BP: 88 mmHg Peak Lopez BP: 85 mmHg Angina Score: None Total METS: 10.3 Resting ECG Sinus rhythm, delta wave seen in leads I, avL. Stress ECG No ST changes. Arrhythmias None. Report Signatures
--- NOTE | 2024-08-08 10:13 | ECHO_ITS ---
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 Summary 1. Complete two-dimensional, color flow and Doppler transthoracic echocardiogram is performed. 2. Left ventricular chamber dimension is normal. 3. Left ventricular systolic function is normal, estimated at 60-65%. 4. The left ventricular diastolic function is normal. 5. E/e' 5 is not elevated. 6. There is trace tricuspid valve regurgitation. 7. No pulmonary hypertension, estimated pulmonary arterial systolic pressure is 27 mmHg. Left Ventricle E/e' 5 is not elevated. Left ventricular chamber dimension is normal. Left ventricular systolic function is normal, estimated at 60-65%. The left ventricular diastolic function is normal. Right Ventricle Right ventricular systolic function is normal and with normal TAPSE 2.3 cm. Right ventricular chamber dimension is normal. Left Atria Left atrial chamber dimension is normal. Right Atria Right atrial chamber dimension is normal. Aortic Valve The aortic valve is trileaflet. There is no aortic valve stenosis. There is no aortic valve regurgitation. Pulmonic Valve There is no pulmonic regurgitation. Mitral Valve There is no mitral valve stenosis. There is no mitral valve regurgitation. Tricuspid Valve There is trace tricuspid valve regurgitation. No pulmonary hypertension, estimated pulmonary arterial systolic pressure is 27 mmHg. Pericardium/Pleural There is no pericardial effusion. Inferior Vena Cava Normal inferior vena cava with >50% collapse upon inspiration consistent with normal right atrial pressure, 5 mmHg. Aorta The aortic root size at the sinus of Valsalva is normal. Left Ventricular Outflow Tract Name Value Normal LVOT 2D LVOT Diameter 2.0 cm LVOT Doppler LVOT Peak Gradient 4 mmHg LVOT Mean Gradient 2 mmHg LVOT VTI 19 cm LVOT VTI/AV VTI Ratio 0.7 LVOT Stroke Volume 62 ml LVOT CO 13.5 l/min LVOT CI 6.6 l/min/m2 Pulmonic Valve Name Value Normal PV Doppler PV Peak Gradient 2 mmHg Mitral Valve Name Value Normal MV Doppler MV Decel [place] 298 cm/s2 MV PHT 68 ms MV Area (PHT) 3.3 cm2 4.0-5.0 MV Diastolic Function MV E Peak Velocity 70 cm/s MV A Peak Velocity 54 cm/s MV E/A 1.3 MV Decel Time 233 ms MV Annular TDI MV E/e' (Septal) 6.0 <=8.0 MV E/e' (Lateral) 5.2 <=8.0 MV E/e' (Average) 5.6 Tricuspid Valve Name Value Normal TV Regurgitation Doppler TR Peak Velocity 232 cm/s TR Peak Gradient 22 mmHg Estimated PAP/RSVP RA Pressure 5 mmHg <=5 PA Systolic Pressure 27 mmHg <36 RV Systolic Pressure 27 mmHg <36 Aorta Name Value Normal Ascending Aorta Ao Root Diameter (MM) 3.0 cm Ao Root Diam Index (MM) 1.5 cm/m2 Aortic Valve Name Value Normal AV Doppler AV Peak Velocity 123 cm/s AV Peak Gradient 6 mmHg AV Mean Gradient 4 mmHg AV VTI 27 cm AV Area (Cont Eq VTI) 2.3 cm2 >=3.0 AV Area (Cont Eq Grady) 2.5 cm2 AV Regurgitation 2D LVOT Area 3.2 cm2 Ventricles Name Value Normal LV Dimensions 2D/MM IVS Diastolic Thickness (2D) 0.9 cm 0.6-1.0 LVID Diastole (2D) 4.0 cm 3.8-5.2 LVIW Diastolic Thickness (2D) 1.0 cm 0.6-0.9 LVID Systole (2D) 2.9 cm 2.2-3.5 LVOT Diameter 2.0 cm LV Mass (2D Cubed) 117.13 g 67.00-162.00 LV Mass Index (2D Cubed) 57 g/m2 43-95 Relative Wall Thickness (2D) 0.50 LV Fractional Shortening/Ejection Fraction 2D/MM LV Fractional Shortening (2D) 28 % 27-45 LV EF (2D Teicholz) 55 % 54-74 LV Diastolic Volume (4C MOD) 95 ml LV EF (4C MOD) 65 % LV Diastolic Volume (2C MOD) 103 ml LV EF (2C MOD) 65 % LV Diastolic Volume (BP MOD) 101 ml 46-106 LV Diastolic Volume Index (BP MOD) 49 ml/m2 29-61 LV Systolic Volume (BP MOD) 35 ml 14-42 LV Systolic Volume Index (BP MOD) 17 ml/m2 8-24 LV EF (BP MOD) 66 % 54-74 LV Diastolic Length (4C) 7.3 cm LV Systolic Length (4C) 6.4 cm LV Stroke Volume (4C MOD) 61 ml RV Dimensions 2D/MM RVID Diastole (2D) 4.1 cm 2.5-3.5 Atria Name Value Normal LA Dimensions LA Dimension (MM) 3.2 cm 2.7-3.8 LA Volume (4C A-L) 50 ml LA Volume (BP A-L) 44 ml RA Dimensions RA Area (4C) 15.1 cm2 <=18.0 Report Signatures
== END 2024-08-08 07:32 | disposition home or self-care (01) ==
LOC: ANHCARD 07:32
PROVIDERS: PCP Nurse Practitioner Family; Visit Provider Internal Medicine Cardiovascular Disease
DX: I45.6 Pre-excitation syndrome (principal); I10 Essential (primary) hypertension
CPT/HCPCS: 93017; 93306

== ENCOUNTER 2025-05-14 09:37 | Outpatient (CLI) | payer OTHER, SELFPAY ==
--- OUTSIDE RECORDS SUMMARY | 2025-05-14 09:39 | XMS_ITS | Encounter Summary ---
Author Organization [facility] Address [address] [place] [address] Care Team Providers Care Labor Relations Supervisor Name Role Phone Konstantin Henrique Andrew RODRIGUEZ Primary Care Provider [phone] Encounter Details Date Type Department Care Team (Late st Contact Info) Description 09/10/2024 Abstract [facility] [address] Chelsi Clarke MA Social History Tobacco Use Types Packs/Day Years Used Date Smoking Tobacco: Never Smokeless Tobacco: Never Alcohol Use Standard Drinks/Week Comments Not Currently 0 (1 standard drink = 0.6 oz pur e alcohol) Comments Unknown Sex and Gender Information Value Date Recorded Sex Assigned at Female 10/11/2024 10:48 AM CDT Legal Sex Female 11:21 AM BEHAVIORAL SERVICES TECH Gender Identity Not on file Sexual Orientation Not on file documented as of this encounter Plan of Treatment Not on file documented as of this encounter Procedures Procedure Name Priority Date/Time Associated Diagnosis Comments COMPREHENSIVE METABOLIC PANEL Routine 06/14/2024 CBC, MANUAL DIFF Routine 06/14/2024 THYROID STIM HORMONE TSH Routine 06/14/2024 COMPREHENSIVE METABOLIC PANEL Routine 10/29/2021 documented in this encounter Results * COMPREHENSIVE METABOLIC PANEL (06/14/2024) GLUCOSE 83 mg/dL BUN 20 CREATININE S/P/B 0.81 0.5 - 1.0 CALCIUM S/P/B 9.9 POTASSIUM S/P/B 4.0 CHLORIDE S/P/B 102 CO2 24 AST 35 ALT 33 ALKALINE PHOSPHATASE S/P/B 52 ALBUMIN S/P/B 4.7 3.5 - 5.0 TOTAL PROTEIN S/P/B 8.0 us Default History Genericprovider LABORATORY Edited Result - Final * THYROID STIM HORMONE TSH (06/14/2024) TSH 2.150 us Default History Genericprovider LABORATORY Edited Result - Final * CBC, MANUAL DIFF (06/14/2024) WBC 5.9 HGB 14.7 HCT 43.3 PLT 303 us Default History Genericprovider LABORATORY Final Result * COMPREHENSIVE METABOLIC PANEL (10/29/2021) SODIUM S/P/B Comment:error,deleted us Default History Genericprovider LABORATORY Edited Result - Final documented in this encounter Visit Diagnoses Not on filedocumented in this encounter Care Teams Labor Relations Supervisor Relationship Specialty Start Date End Date Henrique Pryor DO [address] [place] [address] PCP - General CARDIOLOGY 07/25/24 documented as of this encounter
--- OUTSIDE RECORDS SUMMARY | 2025-05-14 09:39 | XMS_ITS | Encounter Summary ---
Author Organization [facility] Address [facility] access hospital[address] [place] [address] Care Team Providers Care Medical Physics Teacher Name Role Phone Henrique Pryor DO Primary Care Provider [phone] Encounter Details Date Type Department Care Team (Late st Contact Info) Description 09/26/2024 [employer] Message Enc [facility] racquel [facility], [facility] [address] [place], [place] [id number] Ramu Laurent MD [facility]. [facility] [address] [place], [place] [id number] Upcoming [employer]blation Social History Tobacco Use Types Packs/Day Years Used Date Smoking Tobacco: Never Smokeless Tobacco: Never Alcohol Use Standard Drinks/Week Comments Not Currently 0 (1 standard drink = 0.6 oz pur e alcohol) Comments Unknown Sex and Gender Information Value Date Recorded Sex Assigned at Female 10/11/2024 10:48 AM CDT Legal Sex Female 11:21 AM INDUSTRIAL MAINTENANCE TECH Gender Identity Not on file Sexual Orientation Not on file documented as of this encounter Plan of Treatment Not on file documented as of this encounter Visit Diagnoses Not on filedocumented in this encounter Care Teams Medical Physics Teacher Relationship Specialty Start Date End Date Henrique Pryor DO [address] [place] [address] PCP - General CARDIOLOGY 07/25/24 documented as of this encounter
--- OUTSIDE RECORDS SUMMARY | 2025-05-14 09:39 | XMS_ITS | Clinical Summary ---
Author Organization [facility] Address [address] [place] [address] Care Team Providers Care Pediatric Physiatrist Name Role Phone Unavailable Primary Care Provider [...] on file Legal Sex Female 7:32 PM INFANT TODDLER LEAD TEACHER Gender Identity Not on file Sexual Orientation Not on file Last Filed Vital Signs Vital Sign Reading Time Taken Comments Blood Pressure 140/104 06/17/2022 11:11 AM INFANT TODDLER LEAD TEACHER Pulse - - Temperature - - Respiratory Rate - - Oxygen Saturation - - Inhaled Oxygen Concentration - - Weight 88.5 kg (195 lb) 06/17/2022 11:11 AM INFANT TODDLER LEAD TEACHER Height 165.7 cm (5' 5.25) 06/17/2022 11:[address] Body Mass Index 32.2 06/17/2022 11:11 AM INFANT TODDLER LEAD TEACHER Plan of Treatment Health Maintenance Due Date Last Done Comments HEPATITIS B VACCINES (1 of 3 - 19+ 3-dose series) 01/24/2004 HPV/Cotest (21-29) 2006 CERVICAL CANCER SCREENING 2015 HPV/Cotest (30-65) 2015 PAP SMEAR 2015 INFLUENZA VACCINE (#1) 2024 2, 02/25/2021, 03/04/2020, Additional history exists COVID-19 Vaccine (2 - 2024-2 6 season) 2025 07/24/2020 BREAST CANCER SCREENING 2025 DTAP/TDAP/TD VACCINES (2 - T d or Tdap) 10/06/2030 10/06/2020 HPV VACCINES (No Doses Required) Completed Insurance [facility] [id number]
--- OUTSIDE RECORDS SUMMARY | 2025-05-14 09:39 | XMS_ITS | Clinical Summary ---
Author Organization [address] Address [address] [place] [id number] Care Team Providers Care Marine Superintendent Name Role Phone Candelaria Colon MD Primary [...] today. Assessment & Plan (04/25/2022 3:53 PM CLAY PIGEON LOADER): Recheck was WNL I have asked her [...] leading to increase in fractures, CKD with fdc use of PPI Menorrhagia with irregular cycle 04/03/2019 Assessment & Plan (12/08/2022 9:06 AM CDT): Controlled. Managed by gynecology. Continue vaginal control ring. Up-to-date on Pap smear. Assessment & Plan (04/03/2019 9:24 AM CLAY PIGEON LOADER): Will check labs Will check pelvic ultrasound Does not do well will OCP's Will refer to APPAREL PATTERN MAKER Update me after the visit Call for [...] changes Assessment & Plan (04/25/2022 3:53 PM CLAY PIGEON LOADER): Start DASH/low salt BMI Follow-up includes: nutrition [...] counseling. Assessment & Plan (04/03/2019 9:27 AM CLAY PIGEON LOADER): BMI Follow-up includes: nutrition counseling. BMR calculated at:1617 calories/day To lose weight, daily calorie goal to lose a pound a week would be 1317 Start tracking using an clifton like [employer], loseit There are many different diet options- [...] on file Legal Sex Female 3:01 AM CLAY PIGEON LOADER Gender Identity Female 06/05/2019 2:40 PM CLAY PIGEON LOADER Sexual Orientation Lesbian 06/05/2019 2: 40 PM CLAY PIGEON LOADER Obstetrics History Para Term AB IAB SAB [...] P M CDT Height 162.6 cm (5' 4) 02/16/2023 1:02 PM CDT Body Mass Index 29.97 02/16/2023 1:02 PM CDT Plan of Treatment Health Maintenance Due Date Last Done Comments Breast Cancer Screening-Mammogram 1985 Hepatitis C Screening 1985 Hepatitis B Screening 2003 HPV Vaccines (1 - 3-dose SCDM series) 01/24/2012 Regular Well Visit/Exam 18-64 12/09/2023 12/08/2022, 07/14/2021, 02/13/2020 Depression Screening 02/17/2024 02/16/2023, 04/25/2022, 11/18/2021, Additional history exists Covid-19 Vaccine ( season) 2025 03/09/2022, 05/20/2021, 07/24/2020 Influenza Vaccine (#1) 2025 2, 03/21/2021, 02/25/2021, Additional history exists Cervical Cancer Screening 07/14/20262021, 05/17/2019, 05/17/2019, Additional history exists DTaP/Tdap/Td Vaccine (2 - Td or Tdap) 10/06/2030 10/06/2020 Pneumococcal vaccine <65 Aged Out No longer eligible based on patient's age to complete this topic Varicella Vaccines Discontinued Procedures Procedure Name Priority Date/Time Associated Diagnosis Comments PAP AND HIGH RISK HPV, REFLEX TO GENOTYPING Routine 07/14/2021 11:10 AM CLAY PIGEON LOADER Well woman exam Screening for cervical cancer from Last 3 Months or Most Recently Relevant to Health Maintenance Results * Pap and High Risk HPV, reflex to Genotyping (07/14/2021 11:10 AM CLAY PIGEON LOADER) Thin prep (Pap test) 07/14/2021 11:10 AM CLAY PIGEON LOADER 07/16/2021 11:10 AM CLAY PIGEON LOADER Narrative PATHOLOGY [facility] - 07/22/2021 11:14 AM CLAY PIGEON LOADER [facility] Department of Pathology [address] [place] [id number] Final Report with Addendum Note to Patients: [...] the details. Patient Name: ELVIRA VASQUEZ Address: Pending [facility] to [facility] [place] [address] Gender: F : 1985 (Age: 36) Service: Laboratory Location: [facility] #: [id number] Patient Type: [facility] SPECIMEN Taken: 07/14/2021 Received: 07/16/2021 Accessioned:: 07/19/2021 Reported: 07/22/2021 Physician(s): Sue Pratt M.D. [facility] Diagnosis: Source of Specimen: SCREENING THIN PREP [...] Reviewed and Signed Out By JERZY MauroASCP) 07/19/2021 13:38:57 Specimen(s) Received: A: SCREENING THIN [...] by the Surgical Pathology Department at [facility] as part of an ongoing software quality specialist program and in compliance with [...] [facility] It has not been cleared or approved by the [place]. S. Food and Drug Administration. Sue Pratt MD LAB CYTOLOGY ORDERABLES Final Re sult [facility] ([place], [place]) Organization Address City/State/ZIP Co de Phone Number [facility] from Last 3 Months or Most Recently Relevant to Health Maintenance Insurance [facility] [employer] OPEN ACCESS Care Teams Marine Superintendent Relationship Specialty Start Date End Date Candelaria Colon MD [address] [place] [address] PCP - General Family Medicine 01/31/19
--- OUTSIDE RECORDS SUMMARY | 2025-05-14 09:39 | XMS_ITS | Clinical Summary ---
Author Organization [facility] Address [facility] [place] [address] Care Team Providers Care Kier Operator Name Role Phone Konstantin Henrique Andrew RODRIGUEZ Primary Care Provider [phone] Allergies No known active allergies Medications spironolactone (ALDACTONE) 25 MG tablet Take 1 tablet (25 mg total) by mouth daily. 05/31/2024 Active Segesterone-Ethi nyl Estradiol (ANNOVERA) 0.15-0.013 MG/24HR RING Place 1 Ring vaginally. Active Active Problems Problem Noted Date Diagnosed Date Hypertension, essential 11/18/2021 Pre-excitation syndrome Resolved Problems Problem Noted Date Diagnosed Date Resolved Date GERD (gastroesophageal reflux disease) 08/13/2019 11/20/2024 Immunizations Immunization Administration Dates Next Due Influenza (Generic) 03/21/2021,03/04/2020 Influenza Adult (Generic) 03/03/2023,,02/25/2021,03/19/2019,2017,03/13/2017 Tdap (Generic) 10/06/2020 Family History Medical History Relation Comments [place] Maternal Grandfather [place] Maternal Grandmother Relation Status Comments Father Alive Maternal Grandfather Maternal Grandmother Mother Alive Social History Tobacco Use Types Packs/Day Years Used Date Smoking Tobacco: Never Smokeless Tobacco: Never Tobacco Cessation:Counseling Given: Not Answered Alcohol Use Standard Drinks/Week Comments Never 0 (1 standard drink = 0.6 oz pur e alcohol) Comments No Sex and Gender Information Value Date Recorded Sex Assigned at Female 10/11/2024 10:48 AM CDT Legal Sex Female 11:21 AM SHIPPING PACKER Gender Identity Not on file Sexual Orientation Not on file Last Filed Vital Signs Vital Sign Reading Time Taken Comments Blood Pressure 130/94 11/28/2024 11:17 AM CDT Pulse 69 11/28/2024 11:17 AM CDT Temperature 36.6 C (97.9 F) 10/11/2024 11:46 AM CDT Respiratory Rate 16 10/11/2024 4:00 PM CDT Oxygen Saturation 99% 11/28/2024 11:17 AM CDT Inhaled Oxygen Concentration - - Weight 91.6 kg (202 lb) 11/28/2024 11:17 AM CDT Height 165.1 cm (5' 5) 11/28/2024 11:17 AM CDT Body Mass Index 33.61 11/28/2024 11:17 AM CDT Plan of Treatment Health Maintenance Due Date Last Done Comments Annual Physical 01/24/1988 Hepatitis C 2003 Hepatitis B Vaccines (1 of 3 - 19+ 3-dose series) 01/24/2004 HPV Vaccines (1 - 3-dose SCDM series) 01/24/2012 Cervical Cancer Screening Pap with HPV Testing (Age 30 to 64) Every 5 Years 2015 Cervical Cancer Screening Pap Smear (Age 30 to 64) Every 3 Years 07/14/2024 07/14/2021 Cervical Cancer Screening with HPV 07/14/2024 COVID-19 Vaccine ( season) 2025 03/09/2022, 05/20/2021, 07/24/2020 Mammogram Screening 2025 Influenza Adult (#1) 2025 03/03/2023, 03/09/2022, 03/21/2021, Additional history exists DTaP, Tdap and Td Vaccines (2 - Td or Tdap) 10/06/2030 10/06/2020 Hepatitis A Vaccines Aged Out No long er eligible based on patient's age to complete this topic Meningococcal B Vaccine Aged Out No l onger eligible based on patient's age to complete this topic Meningococcal Vaccine Aged Out No racquel bridgette eligible based on patient's age to complete this topic Pneumococcal Vaccine: Pediatrics (0 to 5 Years) and At-Risk Patients (6 to 49 Years) Aged Out No longer eligible based on patient's age to complete this topic RSV Immunizations Under 20 Months Aged Out No longer eligible based on patient's age to complete this topic Insurance [employer] Advance Directives Documents on File Type Date Recorded Patient [employer] Tube Tester Expl anation Power of Relief Man 09/13/2024 7:26 AM 07/20 - SIENA SEARS, [employer]; * Full Code (Latest Code Status on File) Date Activated Date Inactivated Comments 10/11/2024 4:29 PM 10/11/2024 7:58 PM Healthcare Agents on File Name Relationship Healthcare Agent Relationship Communication Siena Sears ([facility]) Domestic Partner Health Care Agent [phone] (Mobile ) Care Teams Kier Operator Relationship Specialty Start Date End Date Henrique Pryor DO [address] [place] [address] PCP - General CARDIOLOGY 07/25/24
[2025-05-14 10:27] LABS: Influenza A QL RT-PCR Negative (Negative); Influenza B QL RT-PCR Negative (Negative); RSV RNA, RT-PCR Negative (Negative); SARS-CoV-2 RNA PCR Positive (Negative)
== END 2025-05-14 09:38 | disposition home or self-care (01) ==
LOC: ANHLAB 09:37
PROVIDERS: PCP Nurse Practitioner Family; Visit Provider Family Medicine
DX: U07.1 COVID-19 (principal); J11.1 Influenza due to unidentified influenza virus with other respiratory manifestations
CPT/HCPCS: 87637